=== PATIENT | female | born 1950 | race Two or more races ===

== ENCOUNTER 2023-05-14 09:40 | Outpatient (AMB) | payer OTHER, SELFPAY ==
--- NOTE | 2023-05-14 10:09 | HO.SPINEOV ---
Intake Intake Visit Reasons: spinal stenosis L4-5 Intake Note: Mrs. Miller is here today c/o low back pain. MRI done @ [facility]/brought disc. [employer]er Required: No Assessment & Plan Assessment & Plan (1) Spinal stenosis: Code(s): M48.00 - Spinal stenosis, site unspecified (2) Neurogenic claudication: Code(s): R29.818 - Other symptoms and signs involving the nervous system Plan Robbin is a pleasant 72-year-old female comes in today as a self referral after being referred by one of her friends who had surgery by Dr. Rogers last year. She comes in today with a chief complaint of low back pain with radiation into her posterior lower extremities bilaterally, and down to the outside of her lower leg on the right side. She reports no associated paresthesias but does say that the pain has progressed since onset last year. She states that she has had a myriad of right-sided lower and upper extremity problems over the course of the last couple of years. Most recently she had a right-sided rotator cuff repair in July of last year, and a right total knee repair in August of this year. She states that after these surgeries she began having gradual onset low back pain. She reports that she never had back or leg pain before these surgeries. She states that she has tried many [id number] remedies including Tylenol, ibuprofen, gabapentin, ice, heat, and pain patches without alleviation of symptoms. She has also tried physical therapy, and bilateral cortisone injections (described like facet blocks) at [facility] roughly 6 weeks ago, which he states were not helpful at all. She reports she is now at the point where she is only able to walk for about 5 minutes until she feels she has to sit. She needs to utilize the shopping cart to keep herself mobile when at the grocery store. Her only relieve comes from swimming, and lying down. PMH: Hypertension, right total knee repair, right rotator cuff tear, tonsillectomy, open reduction internal fixation of the right wrist, repair of a bone spur on the right heel. Social hx: Patient does not smoke, reports no substance use. Medications: Tylenol. Allergies: NKDA Physical exam: Mobility / function: Patient ambulates well, can rise from a seated position without difficulty. Sensation: Grossly intact CN: II-XII grossly intact. Strength Testing Upper Extremities: - Deltoid 5/5 right 5/5 left - Biceps 5/5 right 5/5 left - Triceps 5/5 right 5/5 left - Wrist Ext 5/5 right 5/5 left - Wrist Flex 5/5 right 5/5 left - Hand manager logistic 5/5 right 5/5 left - Interossei 5/5 right 5/5 left Strength Testing Lower Extremities: - Hip flexion 5/5 right 5/5 left - Knee extension 5/5 right 5/5 left - Dorsiflexion 5/5 right 5/5 left - Plantar flex 5/5 right 5/5 left - EHL 5/5 right 5/5 left Reflexes: - Biceps Right - 2+ Left - 2+ - Triceps Right - 2+ Left - 2+ - Patellar Right - 2+ Left - 2+ - Achilles Right - 2+ Left - 2+ - Plantar Right - 2+ Left - 2+ (-) Tang?s sign Imaging review: MRI (04/24/23) completed by [facility] (patient brought disc) shows severe L4-5 spinal stenosis. Additionally, L5-S1 fused segment with a spondylolithesis. A dynamic x-ray of the lumbar spine showed no instability. Impression: The patient is a 72-year-old female who comes in today as a self-referral for evaluation of low back pain and neurogenic claudication that started suddenly after her 2 previously listed surgeries. It is likely that she simply did not recognize the back pain and it is insidious onset as she was dealing with other more painful processes, which have since been resolved. Her story is classic for spinal stenosis, she endorses the need to flex her back (shopping cart sign) in order to stay mobile, and reports improvement of symptoms with rest/lying down. She has a very difficult time completing ADLs such as washing dishes taking out the trash in caring for herself. Fortunately she has remained relatively mobile and is able to still exercise via aquatic aerobics. Dr. Rogers and I reviewed the patient case, imaging, and examined the patient together. Due to her continued progression in severe spinal stenosis at the level of L4-L5 he offered her a L4-L5 laminotomy to decompress the central canal. She was scheduled for surgery on June 19. Deborah was given risk and benefits of surgery including but not limited to infection, hematoma, nerve injury, durotomy, weakness, bowel/bladder injury, persistent pain. As well as the option to continue with conservative treatment and patient wishes to proceed with surgery. The patient is aware she should stop their motrin, aspirin 7 days prior to surgery. All questions were answered to the best of our ability. If there is anything about this patients medical history that we have overlooked or concerns you have about us proceeding with surgery we would appreciate any input you can offer. She was encouraged to follow-up with her primary care physician to discuss her surgery, but does report that she has no significant health problems at this time. Thank you for allowing us to care for your patient. The total time spent with this visit with this patient was 60 minutes reviewing history, physical exam, MRI / Lumbar spine imaging review, and implementation of treatment plan or further diagnostic testing. Ashkan Rogers MD,PhD [facility] Orders: Orders XR lumbar spine 4V min Today M48.00 - Spinal stenosis, site unspecified Coding Level of Care Code New Pt Level 5 (50804) Diagnoses Spinal stenosis M48.00 Neurogenic claudication R29.818
== END 2023-05-14 11:17 | disposition home or self-care (01) ==
PROVIDERS: Visit Provider Neurological Surgery
DX: M48.00 Spinal stenosis, site unspecified (principal); R29.818 Other symptoms and signs involving the nervous system
CPT/HCPCS: 99205

== ENCOUNTER 2023-05-14 09:40 | Outpatient (REF) | payer OTHER, SELFPAY ==
--- NOTE | ~2023-05-14 | XR_ITS ---
EXAMINATION: XR LUMBOSACRAL SPINE WITH OBLIQUES CLINICAL INFORMATION: Spinal stenosis. COMPARISON: None available. TECHNIQUE: AP, lateral, and bilateral oblique views of the lumbosacral spine. FINDINGS: Grade 1 anterolisthesis of L5 on S1 measuring approximately 0.6 cm in AP dimension. The lumbar lordosis is maintained. No acute fracture. No loss of vertebral body height. Loss of intervertebral disc height with endplate osteophytes at L4-L5 and L5-S1. Multilevel bilateral facet arthropathy throughout the lower lumbar spine. No concerning lytic or blastic osseous lesion. XR/XR lumbar spine 4V min IMPRESSION: 1. Grade 1 anterolisthesis of L5 on S1. 2. Moderate degenerative disc disease at L4-L5 and L5-S1 with multilevel bilateral facet arthropathy.
== END 2023-05-14 09:41 | disposition home or self-care (01) ==
LOC: HO.HOSX 09:40
PROVIDERS: Visit Provider Neurological Surgery
DX: M48.00 Spinal stenosis, site unspecified (principal)
CPT/HCPCS: 72110

== ENCOUNTER → 2023-07-10 12:18 | Outpatient (BNV) | payer OTHER, SELFPAY | PROVIDERS: Visit Provider Neurological Surgery | DX: Z48.89 Encounter for other specified surgical aftercare (principal) | CPT/HCPCS: 63047; 99024; 99499 ==

== ENCOUNTER 2023-07-10 16:51 | Outpatient (BNV) | payer OTHER, SELFPAY | END 2023-07-11 07:00 | PROVIDERS: Admitting Provider Family Medicine; Visit Provider Internal Medicine | DX: I36.1 Nonrheumatic tricuspid (valve) insufficiency (principal); I34.81 Nonrheumatic mitral (valve) annulus calcification | CPT/HCPCS: 93306 ==

== ENCOUNTER 2023-07-10 16:51 | Inpatient (IN) | payer OTHER, SELFPAY ==
--- NOTE | 2023-06-11 | ECG_ITS ---
Test Reason : preop Blood Pressure : / mmHG Vent. Rate : 075 BPM Atrial Rate : 075 BPM P-R Int : 158 ms QRS Dur : 082 ms QT Int : 390 ms P-R-T Axes : 040 -19 041 degrees QTc Int : 435 ms Normal sinus rhythm Normal ECG No previous ECGs available Referred By: Georgette Moore Electronically Signed By:GABI JUSTIN MD
[2023-06-11 12:00] VITALS: BP 204/110; PULSE 77; RESP 16; O2SAT 96; BMI 42.1
--- NOTE | 2023-06-11 12:35 | P.CONAN_ITS ---
HPI - Anesthesia Eval Consult details Narrative: Pending reschedule 72yo F for L4-5 Laminotomy BP extremely elevated at PAT. Pt denies any headache, vision changes, chest pain. Encourage to go to ER. Pt declines. Discussed need for optimization of BP prior to surgery Per medical clearance note from [facility], BP elevated at visit, but home readings acceptable. Pt recently started losartan. Instructed by [facility] provider to take losartanc and HCTZ DOS to avoid uncontrolled HTN. No recent illness No CP/SOB with minimal activity. Limited to pain in back and legs Hx of seizures. Last ~ 25 years ago. No rx. No neuro f/u. [facility] Active Problems Active Problems: All Active Problems (Updated 06/11/23 @ 11:45 by Kelsey Li RN) Neurogenic claudication (Acute) Spinal stenosis (Acute) Past Medical History Medical History (Updated 06/11/23 @ 11:45 by Kelsey Li RN) Back pain Arthritis Seizures HTN (hypertension) Family History Family history of problems with anesthesia: No Surgical History Surgical History (Updated 06/11/23 @ 11:58 by Kelsey Li RN) Hx of section Hx of foot surgery Hx of bilateral salpingo-oophorectomy Hx of total hysterectomy History of open reduction and internal fixation (ORIF) procedure Hx of tonsillectomy Hx of repair of rotator cuff Hx of total knee replacement History of Problems with Anesthesia: No Social History Social History Are you a primary infant caregiver to a significant other at home: No Do you presently have visiting nurse or other home services: No Patient Tobacco Use Status: Never used Tobacco Use of substances other than those prescribed or required for medical reasons: No Have you been hit, kicked, punched, or otherwise hurt by someone within the past year? If so, by whom?: No Advance Directives: No Advance Directives Information Provided: No Advance Directives on File: No Recently lost weight without trying: No Eating poorly because of decreased appetite: No Nutrition Risks: No Nutritional Risk Patient : No : No Poor oral hygiene: No Meds Allergies Allergy/AdvReac Type Severity Reaction Status Date / Time acetaminophen [From Tylenol] Allergy Swelling Verified 06/11/23 11:40 baclofen Allergy Unknown Verified 06/11/23 11:55 Iodinated Contrast Media Allergy Rash Verified 06/11/23 11:40 [IV Contrast Dye] lisinopril Allergy Cough Verified 06/11/23 11:54 Home Medications Medication Instructions Recorded Confirmed Last Taken Type cholecalciferol (vitamin D3) 25 25 mcg PO DAILY 06/11/23 06/11/23 Unknown History mcg (1,000 unit) tablet (Vitamin D3) hydrochlorothiazide 12.5 mg capsule 12.5 mg PO DAILY 06/11/23 06/11/23 Unknown History magnesium oxide 400 mg PO DAILY 06/11/23 06/11/23 Unknown History methocarbamol 750 mg tablet 750 mg PO Q6H PRN Spasms 06/11/23 06/11/23 Unknown History naproxen 500 mg tablet 500 mg PO BID 06/11/23 06/11/23 Unknown History potassium chloride 10 mEq 30 meq PO DAILY 06/11/23 06/11/23 Unknown History tablet,extended release(part/cryst) (Klor-Con M) Exam Exam Date and Time: June 11, 2023 1235 Height,Weight and Vital Signs: Height 5 ft 6 in Weight 118.388 kg Last Vital Signs Pulse 77 06/11/23 12:00 Resp 16 06/11/23 12:00 BP 204/110 H 06/11/23 12:00 Pulse Ox 96 06/11/23 12:00 O2 Del Method Room Air 06/11/23 12:00 Pertinent Lab Results Pertinent Lab Results: Lab Results 06/11/23 Range/Units 13:10 WBC 5.7 (4.8-10.8) X10*3/uL RBC 4.68 (4.20-5.50) X10*6/uL Hgb 13.4 (12.0-16.0) g/dl Hct 41.4 (37.0-47.0) % MCV 88.5 (80.0-98.0) fL MCH 28.6 (27.0-33.0) pg MCHC 32.4 (31.0-35.0) g/dl RDW 13.9 (11.0-16.0) % Plt Count 306 (160-400) X10*3/uL MPV 10.3 (9.4-12.3) fL Absolute Nucleated RBC 0.000 (0.0-0.012) X10*3/uL Nucleated RBC % (auto) 0.0 (0.0-0.2) /100WBC Sodium 141 (135-145) mmol/L Potassium 3.2 L (3.3-5.1) mmol/L Chloride 103 (96-108) mmol/L Carbon Dioxide 26 (22-29) mmol/L Anion Gap 15 (12-20) BUN 11 (9-16) mg/dL Creatinine 0.59 (0.5-1.4) mg/dL Estim Creat Clear Calc 111.2 Estimated GFR > 60 Random Glucose 93 (60-115) mg/dL Calcium 9.5 (8.4-10.2) mg/dL Narrative Narrative: EKG 05/2023 Vent. Rate : 075 BPM Atrial Rate : 075 BPM P-R Int : 158 ms QRS Dur : 082 ms QT Int : 390 ms P-R-T Axes : 040 -19 041 degrees QTc Int : 435 ms Normal sinus rhythm Normal ECG No previous ECGs available Airway Mallampati Class: II TM Dist: >3cm Neck ROM: Full Loose/Missing/Broken Teeth: No Heart: RRR Lungs: CTA except dim LLL Assessment and Plan Assessment Anesthesia Assessment: Anesthesia Plan Discussed and PAT Visit Final Anesthetic Review Family History of Problems with Anesthesia: No History of Problems with Anesthesia: No
[2023-06-11 13:58] LABS: Hematocrit 41.4 % (37.0-47.0); Hemoglobin 13.4 g/dl (12.0-16.0); Mean Corpuscular HGB Conc 32.4 g/dl (31.0-35.0); Mean Corpuscular Hemoglobin 28.6 pg (27.0-33.0); Mean Corpuscular Volume 88.5 fL (80.0-98.0); Mean Platelet Volume 10.3 fL (9.4-12.3); Platelet Count 306 X10*3/uL (160-400); Red Blood Count 4.68 X10*6/uL (4.20-5.50); Red Cell Distribution Width 13.9 % (11.0-16.0); White Blood Count 5.7 X10*3/uL (4.8-10.8)
[2023-06-11 15:08] LABS: Anion Gap 15 (12-20); Blood Urea Nitrogen 11 mg/dL (9-16); Calcium 9.5 mg/dL (8.4-10.2); Carbon Dioxide 26 mmol/L (22-29); Chloride 103 mmol/L (96-108); Creatinine Clr Calc Pharmacy 111.2; Estimated Glomerular Filt Rate > 60; Glucose Random 93 mg/dL (60-115); Potassium 3.2 mmol/L (3.3-5.1); Sodium 141 mmol/L (135-145)
--- NOTE | 2023-07-09 12:55 | P.CONAN_ITS ---
Documented by User: Georgette Moore NP 07/09/23 12:56 HPI - Anesthesia Eval Consult details Narrative: 72yo F for L4-5 Laminotomy BP extremely elevated at PAT. Pt denies any headache, vision changes, chest pain. Encourage to go to ER. Pt declines. Discussed need for optimization of BP prior to surgery Per medical clearance note from [facility], BP elevated at visit, but home readings acceptable. Pt recently started losartan. Instructed by [facility] provider to take losartanc and HCTZ DOS to avoid uncontrolled HTN. No recent illness No CP/SOB with minimal activity. Limited to pain in back and legs Hx of seizures. Last ~ 25 years ago. No rx. No neuro f/u. [facility] Active Problems Active Problems: All Active Problems (Updated 06/11/23 @ 11:45 by Kelsey Li RN) Neurogenic claudication (Acute) Spinal stenosis (Acute) Past Medical History Medical History Back pain Arthritis Seizures HTN (hypertension) Family History Family history of problems with anesthesia: No Surgical History Surgical History Hx of section Hx of foot surgery Hx of bilateral salpingo-oophorectomy Hx of total hysterectomy History of open reduction and internal fixation (ORIF) procedure Hx of tonsillectomy Hx of repair of rotator cuff Hx of total knee replacement History of Problems with Anesthesia: No Social History Social History Are you a primary out of school hours care worker to a significant other at home: No Do you presently have visiting nurse or other home services: No Patient Tobacco Use Status: Never used Tobacco Use of substances other than those prescribed or required for medical reasons: No Have you been hit, kicked, punched, or otherwise hurt by someone within the past year? If so, by whom?: No Are you DNR?: No Advance Directives: No Advance Directives Information Provided: Yes Advance Directives on File: No Recently lost weight without trying: No Eating poorly because of decreased appetite: No Nutrition Risks: No Nutritional Risk Patient : No : No Poor oral hygiene: No Meds Allergies Allergy/AdvReac Type Severity Reaction Status Date / Time acetaminophen [From Tylenol] Allergy Swelling Verified 06/11/23 11:40 baclofen Allergy Unknown Verified 06/11/23 11:55 Iodinated Contrast Media Allergy Rash Verified 06/11/23 11:40 [IV Contrast Dye] lisinopril Allergy Cough Verified 06/11/23 11:54 Home Medications Medication Instructions Recorded Confirmed Last Taken Type cholecalciferol (vitamin D3) 25 25 mcg PO DAILY 06/11/23 06/11/23 Unknown History mcg (1,000 unit) tablet (Vitamin D3) hydrochlorothiazide 12.5 mg capsule 12.5 mg PO DAILY 06/11/23 06/11/23 07/10/23 10:00 History magnesium oxide 400 mg PO DAILY 06/11/23 06/11/23 Unknown History methocarbamol 750 mg tablet 750 mg PO Q6H PRN Spasms 06/11/23 06/11/23 Unknown History naproxen 500 mg tablet 500 mg PO BID 06/11/23 06/11/23 06/25/23 History potassium chloride 10 mEq 30 meq PO DAILY 06/11/23 06/11/23 Unknown History tablet,extended release(part/cryst) (Klor-Con M) losartan 25 mg tablet 50 mg PO DAILY 07/10/23 07/10/23 07/10/23 10:00 History Exam Exam Date and Time: July 09, 2023 1255 Height,Weight and Vital Signs: Height 5 ft 6 in Weight 118.388 kg Last Vital Signs Pulse 77 06/11/23 12:00 Resp 16 06/11/23 12:00 BP 204/110 H 06/11/23 12:00 Pulse Ox 96 06/11/23 12:00 O2 Del Method Room Air 06/11/23 12:00 Pertinent Lab Results Pertinent Lab Results: Laboratory Tests 06/11/23 13:10 WBC 5.7 RBC 4.68 Hgb 13.4 Hct 41.4 MCV 88.5 MCH 28.6 MCHC 32.4 RDW 13.9 Plt Count 306 MPV 10.3 Absolute Nucleated RBC 0.000 Nucleated RBC % (auto) 0.0 Sodium 141 Potassium 3.2 L Chloride 103 Carbon Dioxide 26 Anion Gap 15 BUN 11 Creatinine 0.59 Estim Creat Clear Calc 111.2 Estimated GFR > 60 Random Glucose 93 Calcium 9.5 Narrative Narrative: EKG 05/2023 Vent. Rate : 075 BPM Atrial Rate : 075 BPM P-R Int : 158 ms QRS Dur : 082 ms QT Int : 390 ms P-R-T Axes : 040 -19 041 degrees QTc Int : 435 ms Normal sinus rhythm Normal ECG No previous ECGs available Airway Mallampati Class: II TM Dist: >3cm Neck ROM: Full Loose/Missing/Broken Teeth: No Heart: RRR Lungs: CTA except dim LLL Assessment and Plan Assessment Anesthesia Assessment: Anesthesia Plan Discussed and PAT Visit (Seen in PAT 06/11/23) Final Anesthetic Review Family History of Problems with Anesthesia: No History of Problems with Anesthesia: No Documented by User: Hung Moraes MD 07/10/23 12:54 [facility] Past Medical History Medical History Back pain Arthritis Seizures HTN (hypertension) Surgical History Surgical History Hx of section Hx of foot surgery Hx of bilateral salpingo-oophorectomy Hx of total hysterectomy History of open reduction and internal fixation (ORIF) procedure Hx of tonsillectomy Hx of repair of rotator cuff Hx of total knee replacement Social History Social History Are you a primary out of school hours care worker to a significant other at home: No Do you presently have visiting nurse or other home services: No Patient Tobacco Use Status: Never used Tobacco Use of substances other than those prescribed or required for medical reasons: No Have you been hit, kicked, punched, or otherwise hurt by someone within the past year? If so, by whom?: No Are you DNR?: No Advance Directives: No Advance Directives Information Provided: Yes Advance Directives on File: No Recently lost weight without trying: No Eating poorly because of decreased appetite: No Nutrition Risks: No Nutritional Risk Patient : No : No Poor oral hygiene: No Meds Allergies Allergy/AdvReac Type Severity Reaction Status Date / Time acetaminophen [From Tylenol] Allergy Swelling Verified 06/11/23 11:40 baclofen Allergy Unknown Verified 06/11/23 11:55 Iodinated Contrast Media Allergy Rash Verified 06/11/23 11:40 [IV Contrast Dye] lisinopril Allergy Cough Verified 06/11/23 11:54 Home Medications Medication Instructions Recorded Confirmed Last Taken Type cholecalciferol (vitamin D3) 25 25 mcg PO DAILY 06/11/23 06/11/23 Unknown History mcg (1,000 unit) tablet (Vitamin D3) hydrochlorothiazide 12.5 mg capsule 12.5 mg PO DAILY 06/11/23 06/11/23 07/10/23 10:00 History magnesium oxide 400 mg PO DAILY 06/11/23 06/11/23 Unknown History methocarbamol 750 mg tablet 750 mg PO Q6H PRN Spasms 06/11/23 06/11/23 Unknown History naproxen 500 mg tablet 500 mg PO BID 06/11/23 06/11/23 06/25/23 History potassium chloride 10 mEq 30 meq PO DAILY 06/11/23 06/11/23 Unknown History tablet,extended release(part/cryst) (Klor-Con M) losartan 25 mg tablet 50 mg PO DAILY 07/10/23 07/10/23 07/10/23 10:00 History Assessment and Plan Assessment Anesthesia Assessment: Chart Reviewed Final Anesthetic Review NPO: Yes ASA Class: III Final Preanesthetic Review: No Changes in Pt Med Stat, Meds/Allgs Chart Reviewed, Consent Obtained/Reviewed and Anes Risks/Benef Reviewed Patient Risk: Intermediate Procedure Risk: Intermediate Anesthetic Plan Anesthetic Plan: GA and Agree w/ Assess. and Plan Disposition: Standard PACU Documented by User: Mackenzie Louis MD 07/10/23 12:55 [facility] Past Medical History Medical History Back pain Arthritis Seizures HTN (hypertension) Surgical History Surgical History Hx of section Hx of foot surgery Hx of bilateral salpingo-oophorectomy Hx of total hysterectomy History of open reduction and internal fixation (ORIF) procedure Hx of tonsillectomy Hx of repair of rotator cuff Hx of total knee replacement Social History Social History Are you a primary out of school hours care worker to a significant other at home: No Do you presently have visiting nurse or other home services: No Patient Tobacco Use Status: Never used Tobacco Use of substances other than those prescribed or required for medical reasons: No Have you been hit, kicked, punched, or otherwise hurt by someone within the past year? If so, by whom?: No Are you DNR?: No Advance Directives: No Advance Directives Information Provided: Yes Advance Directives on File: No Recently lost weight without trying: No Eating poorly because of decreased appetite: No Nutrition Risks: No Nutritional Risk Patient : No : No Poor oral hygiene: No Meds Allergies Allergy/AdvReac Type Severity Reaction Status Date / Time acetaminophen [From Tylenol] Allergy Swelling Verified 06/11/23 11:40 baclofen Allergy Unknown Verified 06/11/23 11:55 Iodinated Contrast Media Allergy Rash Verified 06/11/23 11:40 [IV Contrast Dye] lisinopril Allergy Cough Verified 06/11/23 11:54 Home Medications Medication Instructions Recorded Confirmed Last Taken Type cholecalciferol (vitamin D3) 25 25 mcg PO DAILY 06/11/23 06/11/23 Unknown History mcg (1,000 unit) tablet (Vitamin D3) hydrochlorothiazide 12.5 mg capsule 12.5 mg PO DAILY 06/11/23 06/11/23 07/10/23 10:00 History magnesium oxide 400 mg PO DAILY 06/11/23 06/11/23 Unknown History methocarbamol 750 mg tablet 750 mg PO Q6H PRN Spasms 06/11/23 06/11/23 Unknown History naproxen 500 mg tablet 500 mg PO BID 06/11/23 06/11/23 06/25/23 History potassium chloride 10 mEq 30 meq PO DAILY 06/11/23 06/11/23 Unknown History tablet,extended release(part/cryst) (Klor-Con M) losartan 25 mg tablet 50 mg PO DAILY 07/10/23 07/10/23 07/10/23 10:00 History Assessment and Plan Final Anesthetic Review ASA Class: III
[2023-07-10] VITALS (20 sets, daily range): BP systolic 99–197; BP diastolic 55–100; PULSE 70–130; RESP 16–26; TEMP 36.1–36.7; O2SAT 94–100
--- NOTE | 2023-07-10 | ECG_ITS ---
Test Reason : AF Blood Pressure : / mmHG Vent. Rate : 058 BPM Atrial Rate : 058 BPM P-R Int : 158 ms QRS Dur : 082 ms QT Int : 432 ms P-R-T Axes : 021 005 033 degrees QTc Int : 424 ms Sinus bradycardia Otherwise normal ECG When compared with ECG of 10-JUL-2023 16:42, Sinus rhythm has replaced Atrial fibrillation Vent. rate has decreased BY 58 BPM Non-specific change in ST segment in Inferior leads Nonspecific T wave abnormality no longer evident in Lateral leads Referred By: Joel Richard Electronically Signed By:GABI JUSTIN MD
--- NOTE | ~2023-07-10 | XR_ITS ---
EXAMINATION: XR CHEST CLINICAL INFORMATION: Prominent mediastinum and lee on portable chest x-ray. COMPARISON: 07/10/2023 TECHNIQUE: 2 views of the chest were obtained. FINDINGS: The lungs are moderately expanded. The left hemidiaphragm is elevated. Right paratracheal soft tissue prominence and widening of the mediastinum. Rightward deviation of the trachea possibly related to dilatation of the thoracic aorta. No focal consolidation. No pleural effusion. Cardiac silhouette is unchanged. XR/XR chest 2V IMPRESSION: Right paratracheal soft tissue prominence and widening of the mediastinum. Rightward deviation of the trachea possibly related to dilatation of the thoracic aorta. Advise correlation with contrast-enhanced chest CT.
--- NOTE | ~2023-07-10 | FL_ITS ---
EXAMINATION: XR FLUOROSCOPY WITH IMAGES CLINICAL INFORMATION: L4-L5 laminectomy. COMPARISON: Lumbar spine x-ray April 2023 TECHNIQUE: Fluoroscopy Supervised By: Dr. Elliot Rogers. Fluoroscopy Time: 0.2 minutes. Cumulative Dose: 18.2 mGy. DAP: 0.264 Gycm2. Images: 2. FINDINGS: Initial image demonstrates surgical instruments posterior to the L3-L4 disc space level. Final image demonstrates surgical instruments and probe posterior to the L4-5 disc space. FL/FL guidance in OR IMPRESSION: Fluoroscopy guidance for lumbar spine surgery
--- NOTE | ~2023-07-10 | XR_ITS ---
EXAMINATION: XR CHEST CLINICAL INFORMATION: AF COMPARISON: None available. TECHNIQUE: Frontal view of the chest was obtained. FINDINGS: Heart size within normal limits. Mediastinum and lee are prominent, right greater than left. Elevated left hemidiaphragm with dilated air-filled viscus structure. No vascular congestion, consolidations or effusions. Degenerative changes. XR/XR chest 1V IMPRESSION: Elevated left hemidiaphragm. No acute cardiopulmonary disease. Prominent mediastinum and lee. Correlate with previous radiographs. PA and lateral recommended when feasible.
--- NOTE | 2023-07-10 07:05 | MHC.SHP ---
Pre-Procedural Eval Section A Date of Service: 07/10/23 Section B Chief Complaint: Spinal stenosis,signs and symptoms of nervous syst Allergies: Allergies Allergy/AdvReac Type Severity Reaction Status Date / Time acetaminophen [From Tylenol] Allergy Swelling Verified 06/11/23 11:40 baclofen Allergy Unknown Verified 06/11/23 11:55 Iodinated Contrast Media Allergy Rash Verified 06/11/23 11:40 [IV Contrast Dye] lisinopril Allergy Cough Verified 06/11/23 11:54 Review of Systems Sugical H&P ROS: Negative: Constitution, Cardiovascular, Respiratory, Neurological, Psychiatric, Hem-Onc, Allergic/Immunologic, Gastrointestinal, Genitourinary, Musculoskeletal, Integumentary, Endocrine and Eyes/Ears/Nose/Throat Exam Surgical H&P Exam: Not Evaluated: HEENT, Not Evaluated: Heart, Not Evaluated: Lungs, Not Evaluated: Extremities, Not Evaluated: Abdomen, Not Evaluated: Skin and Not Evaluated: Neurological Plan Diagnosis/Plan: Unchanged I have reviewed the history and physical and performed a pertinent physical examination on my patient. No changes have occurred unless specified. Plan remains the same, L4-5 lumbar decompression Time Spent With Patient Time: Total time managing care of this patient today __10__ minutes.
[2023-07-10] MEDS: methocarbamoL 750 MG TABLET PO (12:53)
[2023-07-10] MEDS: Lactated Ringers 1,000 ML 100 ML IVCONT (12:53)
[2023-07-10] MEDS: Gabapentin 300 MG CAPSULE PO ×2 (12:53→20:02)
--- NOTE | 2023-07-10 16:22 | P.DS_ITS ---
DS: Providers Provider Date of Service: 07/11/23 Primary care physician: Nonstaff Physician DS: Summary Time Attestation Discharge coordination time: Less than 30 minutes Quality: Safe Use of Opioids Does Pt have an Active Cancer Diagnosis on the Problem List?: No Quality: Stroke Does the patient have a stroke diagnosis?: No Physical Exam Vital Signs: Vital Signs: Last Vital Signs Temp 97.9 F 07/10/23 12:56 Pulse 70 07/10/23 12:56 Resp 20 07/10/23 12:56 BP 167/86 H 07/10/23 12:56 Pulse Ox 97 07/10/23 12:56 O2 Del Method Room Air 07/10/23 12:43 BMI result Body Mass Index 42.1 Discharge Plan Discharge Anticipated Discharge Date/Time: 07/11/23 09:51 Patient Disposition: Home, Self-Care Discharge Diagnosis: S/P L4-5 Laminotomy Referrals: Physician,Nonstaff [Primary Care Provider] - 1 Week Discharge Medications: New oxycodone 5 mg tablet 5 mg PO Q6H PRN (Reason: severe pain (scale score 7-10)) Qty: 30 0RF Rx Instructions: Partial Fill upon patient request. Continued hydrochlorothiazide 12.5 mg capsule 12.5 mg PO DAILY cholecalciferol (vitamin D3) [Vitamin D3] 25 mcg (1,000 unit) tablet 25 mcg PO DAILY magnesium oxide 400 mg magnesium Capsule 400 mg PO DAILY losartan 25 mg tablet 50 mg PO DAILY naproxen 375 mg tablet 375 mg PO DAILY PRN (Reason: Pain) ibuprofen 600 mg tablet 600 mg PO Q6H PRN (Reason: pain) fluticasone propionate 110 mcg/actuation HFA aerosol inhaler 1 inh inhalation BID Held potassium chloride [Klor-Con M10] 10 mEq tablet,ER particles/crystals 30 meq PO DAILY Hold Instructions: Resume on 08/10/23. Do not continue unless instructed by prescribing physician prednisone 20 mg tablet 20 mg PO DAILY Hold Instructions: Resume on 08/10/23. Do not continue unless instructed by prescribing physician Diet: Advance to usual diet Activity on Discharge: As tolerated Activity Restrictions/Additional Instructions: After your spinal surgery we ask you to observe the following restrictions/guidelines: Activity: It is normal to feel some discomfort as you increase your activity, but that will improve with time. We ask you avoid heavy lifting or acitivities that cause pain. As a general rule, 8lbs is a safe limit for lifting right after surgery. Walk as much as you feel comfortable but not to exhaustion. You will feel extra tired the first few days after surgery. Stay well hydrated. It is OK to walk up and down stairs You may return to driving when you are off narcotics (such as vicodin, oxycodone, dilaudid, etc), and you are back to normal functional capacity. If you have any concerns please check with office before driving. Return to work is specific to each patient and each surgery, so please speak with your doctor/PA at first follow up. Please bring paperwork such as FMLA at that time if you need it filled out. Medications: We will give you a short supply of narcotics after surgery (usually one weeks worth). If you need more please call the office but do not use more than prescribed. You will need to give our office 48 hours notice if you need narcotics refilled and we do not fill narcotics on weekends or evenings. If you are on a narcotic, it is a good idea to take a stool softener such as colace or senna to avoid constipation If you take blood thinner such as aspirin, Plavix, Coumadin, Effient, Eliquis etc for conditions such as Afib, DVT, Pulmonary embolus, coronary disease, stents etc please speak with your surgeon about specific details as to when you can resume these medications. You can resume NSAIDs on post op day 1 (eg: Motrin, Naproxen, etc). Follow up: Please call the office, , after surgery to arrange a 3 week follow up for wound check. Wound Care: You may remove your dressing on the first day after surgery. You may leave open to air. Please do not remove the steri strips underneath. they will fall off on their own in one week. IT IS NORMAL FOR THE WOUND TO OOZE OR BE BLOODY FOR A FEW DAYS AFTER SURGERY. IF THIS HAPPENS JUST PLACE NEW DRESSING OVER IT TO AVOID STAINING CLOTHES. You may shower on post op day # 1 We ask that you do not let the water soak the wound. If it does get wet, just towel dry lightly. Please do not scrub your incision or place any type of chemical/ointment on the wound. No tub baths, pools or jacuzzis for one month. If you have any leaking or redness from your wound, or fevers, please call the office. __ Care Plan Goals: Return to normal activity as tolerated. Follow-up with any/all referrals recommended by Internal Medicine. Follow-up with primary care provider for postoperative evaluation Health Concerns: None. Plan of Treatment: Follow-up in office in 2-3 weeks Assessment: Patient is s/p uneventful L4-5 laminotomy. She developed AFib postoperatively and was admitted by Internal Medicine. They are undergoing electrolyte replacement of ordered an echocardiogram. From our surgical standpoint she is Neurologically intact, her vital signs are stable, and she has good strength. We encouraged her to get up frequently and ambulate with nursing staff. She understands that she should follow-up with our office in 2-3 weeks after she is discharged from the hospital by our Internal Medicine team. Dr. Rogers, the attending Neurosurgeon, is in agreement with this plan.
--- NOTE | 2023-07-10 16:24 | W.PM.OPN ---
Operative Note Operative Note Date of Service: 07/10/23 Narrative: Preoperative Diagnosis: L4-5 spinal stenosis/lateral recess stenosis/neural foraminal stenosis Operation: L4-5 Laminotomy, Partial facetectomy and foraminotomy with use of microscope Consent Informed Consent was obtained for this operation. I have explained the nature, purpose and benefits of the operation. I have discussed the risks and benefit of the operation including possible complications or adverse events with patient/family. Alternative(s) were discussed with the patient with their relative benefits and risks as well as the consequences of not accepting the operation were included in obtaining consent. Surgeon: GENNA BARKER MD, PHD Procedure Assisted By: PAULINA Bernard Description of Procedure This 72-year-old obese female suffering from neurogenic claudication due to L4-5 spinal stenosis. The patient was offered a decompression. The procedure complications were explained. The patient was consented. The patient was brought to the operating room and endotracheally intubated. The patient was turned in prone position on the Speedy frame. Prep and drape was done followed by timeout. A mid lumbar incision was made followed by release of the paravertebral muscle bilaterally to expose the L3-L5 lamina and facet joints. Multiple intraoperative x-ray was obtained to confirm the correct level. I decided to first do a proximal bilateral L4 laminotomy as L4 nerve roots were compressed due to lateral recess stenosis. The microscope was brought in. The proximal part of the L4 lamina was drilled down and the underlying flavum ligament was opened and resected. Significant stenosis was present for the bilateral L4 nerve roots. Accordingly, the interspinous ligament between L4-5 was removed and L4 laminotomy was extended towards the L4-5 interspace. Again significant hypertrophy flavum ligament was encountered. The ligament was opened and resected to expose the underlying dura. A #2 Kerrison was used to expand the laminotomy near flush to the pedicles and to include a partial facetectomy. The flavum ligament was furtherremoved to decompress the lateral recess and the exiting L5 nerve roots bilaterally. A long nerve hook could be easily passed along the medial side of the pedicles as a sign of adequate decompression. The microscope was removed. Hemostasis was done. The physician health care legal assistant close the Incision in 3 layers. Steri-Strips were used to approximate incision. An OpSite with Tegaderm was used to cover the incision. All sponge needle counts were correct. Patient was extubated and transported in stable is to recovery room. Anesthesia: General Estimated Blood Loss (ml): 350 mL Complications: None Duration of Surgery: Under 120 Minutes Postoperative Plan: 23 hour stay
--- NOTE | 2023-07-10 16:33 | HO.NEUROPN_ITS ---
Neurosurgery Operative Note Date of Service: 07/11/23 Narrative: POD: 0 Procedure: L4-5 laminotomy S/p procedure and after awakening from anesthesia the patient developed AFib, which anesthesia MD attempted to treat with metoprolol. The patient will be admitted to telemetry unit for further evaluation and monitoring of her AFib. Importantly she is asymptomatic at this time. Afebrile, vital signs stable aside from rhythm mentioned above. No neurological deficits. Back dressings have some staining without signs of hematoma. Area is dry. Plan: The patient will be transferred as stated above. I will send the patient out to hospitalist team tonight, and be in tomorrow morning to evaluate and hopefully discharge the patient. Dr. Rogers is aware of and agrees to this plan. Ashkan Rogers MD,PhD [facility]
[2023-07-10] MEDS: fentaNYL citrate/PF 100 MCG/2 ML VIAL 25 MCG IVPUSH ×2 (16:59→17:05)
--- NOTE | 2023-07-10 17:00 | P.HPHOSP_ITS ---
History of Present Illness Date of Service: 07/10/23 Chief Complaint: new-onset AF/RVR 72yo F who underwent L4-L5 laminectomy/partial facetectomy/foraminotomy today for L4-L5 spinal stenosis and in the PACU, went into AF/RVR with rate in the 130s. She was given 3 mg of IV metoprolol and she is still in AF/RVR with rate in the 110s. BP currently 154/85. No palpitations, dyspnea, or lightheadedness. No chest pain. No prior hx of AF. No hx of coronary disease, CVA, or CHF. She has longstanding HTN and is on HCTZ and losartan. Also remote history of seizures in 1996 but not on any AEDs. Review of Systems 2 Review of Systems: Yes all other systems are reviewed and are negative [facility] Medical History Back pain Arthritis Seizures HTN (hypertension) Surgical History Hx of section Hx of foot surgery Hx of bilateral salpingo-oophorectomy Hx of total hysterectomy History of open reduction and internal fixation (ORIF) procedure Hx of tonsillectomy Hx of repair of rotator cuff Hx of total knee replacement Social History Are you a primary patient centered care specialist to a significant other at home: No Do you presently have visiting nurse or other home services: No Patient Tobacco Use Status: Never used Tobacco Use of substances other than those prescribed or required for medical reasons: No Have you been hit, kicked, punched, or otherwise hurt by someone within the past year? If so, by whom?: No Are you DNR?: No Advance Directives: No Advance Directives Information Provided: Yes Advance Directives on File: No Recently lost weight without trying: No Eating poorly because of decreased appetite: No Nutrition Risks: No Nutritional Risk Patient : No : No Poor oral hygiene: No Meds Allergies Allergy/AdvReac Type Severity Reaction Status Date / Time acetaminophen [From Tylenol] Allergy Swelling Verified 06/11/23 11:40 baclofen Allergy Unknown Verified 06/11/23 11:55 Iodinated Contrast Media Allergy Rash Verified 06/11/23 11:40 [IV Contrast Dye] lisinopril Allergy Cough Verified 06/11/23 11:54 Active Medications: Current Medications Fentanyl (Fentanyl Citrate/Pf 100 Mcg/2 Ml Vial) 25 mcg IVPUSH Q5M PRN; Protocol PRN Reason: Pain, Moderate(Pain Scale 4-6) Last Admin: 07/10/23 16:59 Dose: 25 mcg Lactated Ringer's (Lr) 1,000 mls @ 100 mls/hr IVCONT .Q10H SARAVANAN Last Admin: 07/10/23 12:53 Dose: 100 mls/hr Metoprolol Tartrate (Metoprolol Tartrate 5 Mg/5 Ml Vial) 2.5 mg IVPUSH ONCE ONE Stop: 07/10/23 17:01 Ondansetron HCl (Ondansetron Hcl 4 Mg/2 Ml Vial) 4 mg IVPUSH ONCE PRN PRN Reason: Nausea and Vomiting Oxycodone HCl (Oxycodone Hcl Immed Release 5 Mg Tablet) 5 mg PO ONCE PRN PRN Reason: Pain, Severe (Pain Scale 7-10) Sodium Chloride (0.9 % Sodium Chloride Flush 3 Ml Syringe) 3 ml IVFLUSH [facility] Home Medications Medication Instructions Recorded Confirmed Last Taken Type cholecalciferol (vitamin D3) 25 25 mcg PO DAILY 06/11/23 06/11/23 Unknown History mcg (1,000 unit) tablet (Vitamin D3) hydrochlorothiazide 12.5 mg capsule 12.5 mg PO DAILY 06/11/23 06/11/23 07/10/23 10:00 History magnesium oxide 400 mg PO DAILY 06/11/23 06/11/23 Unknown History methocarbamol 750 mg tablet 750 mg PO Q6H PRN Spasms 06/11/23 06/11/23 Unknown History naproxen 500 mg tablet 500 mg PO BID 06/11/23 06/11/23 06/25/23 History potassium chloride 10 mEq 30 meq PO DAILY 06/11/23 06/11/23 Unknown History tablet,extended release(part/cryst) (Klor-Con M) losartan 25 mg tablet 50 mg PO DAILY 07/10/23 07/10/23 07/10/23 10:00 History Physical Exam 2 Vital Signs and Narrative: Vital Signs: Last Vital Signs Temp 97.8 F 07/10/23 16:32 Pulse 118 H 07/10/23 16:47 Resp 20 07/10/23 16:59 BP 154/85 H 07/10/23 16:47 Pulse Ox 100 07/10/23 16:47 O2 Del Method Simple Mask 07/10/23 16:47 O2 Flow Rate 6 07/10/23 16:47 BMI result Body Mass Index 42.1 Gen: in no acute distress HEENT: sclera anicteric, moist mucus membranes Neck: supple Lungs: clear to auscultation bilaterally Heart: irregular, rapid, no murmurs Abd: soft, non-tender, non-distended, morbidly obese Ext: no edema Skin: warm/well-perfused Neuro: alert and oriented x3, no focal findings Psych: appropriate affect Results Labs 06/11/23 13:10 06/11/23 13:10 Assessment and Plan (1) Atrial fibrillation: Status: Acute Plan 72yo F with HTN + obesity who was in PACU after uncomplicated minimally invasive L4-L5 laminectomy and developed new-onset AF/RVR. AF/RVR - [place] [facility] [place] Will give additional dose of metoprolol 5 mg IV. If persistent, may require diltiazem infusion but as anesthesia wears off, may convert to NSR on own. Consult Cardiology re rhythm control strategy. [id number]- VASc 1, no absolute indication for full AC. Will check lytes including K/Mg along with TSH. TTE in AM. HTN - On losartan + HCTZ Postop L4-L5 laminectomy - Routine postop care Morbid obesity - diet/exercise counseling VTE ppx - SCDs Dispo - TBD I anticipate that the patient will stay at least 2 midnights as an inpatient in the hospital due to the above reasons. It is neither reasonable nor safe to care for them in a less acute setting. Quality Stroke Does the patient have a stroke diagnosis?: No VTE Prior VTE?: No VTE Risk Level:: Surgical - low VTE Device Contraindication: N/A - Device Ordered VTE Drug Contraindication: Treatment Not Tolerated
[2023-07-10] MEDS: Metoprolol Tartrate 5 MG/5 ML VIAL IVPUSH (17:18)
[2023-07-10] MEDS: oxyCODONE HCl Immed Release 5 MG TABLET PO (18:00)
[2023-07-10 19:21] LABS: Hematocrit 37.5 % (37.0-47.0); Hemoglobin 12.5 g/dl (12.0-16.0); Mean Corpuscular HGB Conc 33.3 g/dl (31.0-35.0); Mean Corpuscular Hemoglobin 29.4 pg (27.0-33.0); Mean Corpuscular Volume 88.2 fL (80.0-98.0); Mean Platelet Volume 11.6 fL (9.4-12.3); Platelet Count 188 X10*3/uL (160-400); Red Blood Count 4.25 X10*6/uL (4.20-5.50); White Blood Count 10.9 X10*3/uL (4.8-10.8)
[2023-07-10] MEDS: Ketorolac Tromethamine 15 MG/ML VIAL IVPUSH (19:59)
[2023-07-10] MEDS: Docusate Sodium 100 MG CAPSULE PO (20:02)
[2023-07-10] MEDS: 0.9 % Sodium Chloride 1,000 ML 75 ML IVCONT (20:06)
[2023-07-10] MEDS: ceFAZolin Sodium/Dextrose,Iso 2 GM/50 ML PIGGYBACK IV (20:06)
[2023-07-10 20:24] LABS: TSH reflex Free T4 1.98 uIU/mL (0.32-4.0)
[2023-07-10 21:10] LABS: Anion Gap 16 (12-20); Blood Urea Nitrogen 11 mg/dL (9-16); Calcium 8.6 mg/dL (8.4-10.2); Carbon Dioxide 29 mmol/L (22-29); Chloride 101 mmol/L (96-108); Creatinine Clr Calc Pharmacy 109.3; Estimated Glomerular Filt Rate > 60; Glucose Random 136 mg/dL (60-115); Magnesium 1.7 mg/dL (1.6-2.6); Potassium 2.7 mmol/L (3.3-5.1); Sodium 143 mmol/L (135-145)
[2023-07-11] MEDS: Ketorolac Tromethamine 15 MG/ML VIAL IVPUSH ×3 (02:31→12:17)
[2023-07-11] MEDS: ceFAZolin Sodium/Dextrose,Iso 2 GM/50 ML PIGGYBACK IV ×2 (02:31→10:31)
[2023-07-11] MEDS: 0.9 % Sodium Chloride Flush 3 ML SYRINGE IVFLUSH (02:32)
[2023-07-11 03:29] VITALS: BP 109/60; PULSE 70; RESP 18; TEMP 36.8; O2SAT 92
[2023-07-11] MEDS: oxyCODONE HCl Immed Release 5 MG TABLET 10 MG PO ×2 (06:09→16:12)
--- NOTE | 2023-07-11 07:00 | CA_ITS ---
Transthoracic Echocardiogram Patient (Last, First, Middle): Deborah Miller, Gender: Female Date of : 1950 Age: 72 Procedure Date: 07/11/2023 Procedure Type: Transthoracic Echocardiogram [place] [facility] [place] Height: 167.64 cm Weight: 118.39 kg BSA: 2.24 m2 Heart Rate: bpm BP: 109 / 60 mmHg Cage Tender: Referring MD: Joel Richard MD Symptoms: AF Study Quality: Technically Difficult due to body habitus ECG Rhythm: Sinus Conclusions: - The left ventricular systolic function is normal. The visually estimated ejection fraction is between 55-60%. - No obvious valvular pathology seen on this study. Findings Left Ventricle Normal left ventricular cavity size. There is mildly increased left ventricular wall thickness. The left ventricular systolic function is normal. The visually estimated ejection fraction is between 55-60%. There is no evidence of regional wall motion abnormalities. Diastolic function is normal for age. Right Ventricle Normal right ventricular cavity size and systolic function. Atria Both atria are normal in size. Aortic Valve The aortic valve was not well visualized. There is no aortic valve stenosis. There is no aortic valve regurgitation. Mitral Valve The mitral valve appears normal. There is mild mitral annular calcification. There is no mitral valve regurgitation. There is no mitral valve stenosis. Pulmonic Valve The pulmonic valve was not well visualized. Tricuspid Valve Normal tricuspid valve structure. There is mild tricuspid valve regurgitation. There is no evidence of pulmonary hypertension. Great Vessels The aorta was not well visualized. Venous The inferior vena cava is normal in size and collapses greater than 50% with inspiration. Pericardium/Pleural There is no evidence of pericardial effusion. Prior Study Comparison No prior study available for comparison. Recommendations, Care & Conclusions No obvious valvular pathology seen on this study. Measurements 2D Linear Measurements IVSd: 1.27 0.6-0.9/0.6-1.0 cm LVIDd: 4.19 3.9-5.3/4.2-5.9 cm LVIDd Index: 1.87 2.4-3.2/2.2-3.1 cm/m2 LVIDs: 2.75 2.0-3.6 cm LVPWd: 1.28 0.7-1.1 cm Ao Root: 3.30 2.1-3.5 cm LA Diam: 2.50 2.7-3.8/3.0-4.0 cm LAIDs Index: 1.12 1.5-2.3 cm/m2 LV Mass: 241.93 67-162/88-224 g LV Mass Index: 108.00 43-95/49-115 g/m2 LVOT Diam: 2.20 3.0+(-)1.3 cm Mitral Valve MV Pk E: 0.69 MV PK A: 0.96 MV Decel Time: 156.00 E/A: 0.70 E'Lateral: 11.40 E'Medial: 8.05 E/E' Med: 8.50 E/E' Lat: 6.00 PHT: 46.00 MVA PHT: 4.78 Decel Gulf: 4.38 Aortic Valve AoV Pk Johann: 1.29 AoV Mn Johann: 0.84 AoV VTI: 0.27 AoV Pk Grad: 7.00 Aov Mn Grad: 3.00 SANTIAGO Cont.VTI: 3.37 LVOT LVOT Pk Johann: 1.22 LVOT Mn Johann: 0.69 LVOT VTI: 0.24 LVOT Pk Grad: 6.00 LVOT Mn Grad: 3.00 LVOT Diam: 2.20 LVOT Area: 3.80 Diastolic Function MV Pk E: 0.69 MV Pk A: 0.96 E/A: 0.70 E'Medial: 8.05 E/E' Med: 8.50 E' Laterial: 11.40 E/E' Lat: 6.00 Right Ventricle TAPSE (mm): 23.00 Tricuspid Valve TR Pk Johann: 2.80 TR Pk Grad: 31.00 RA Press: 3.00 RVSP: 34.00 Great Vessels Aorta Ao Root-2D: 3.30 2.0-3.7 cm Ao Asc: 3.20 2.1-3.4 cm Pulmonary Valve PV Pk Johann: 1.25 Peak PV Grad: 6.00 Updated in Other Vendor System with Status of Final Martinez Connors MD electronically signed on 07/11/2023 12:24:25 PM with status of Final
[2023-07-11 07:20] VITALS: BP 105/58; PULSE 73; RESP 18; TEMP 36.1; O2SAT 97
[2023-07-11] MEDS: hydroCHLOROthiazide 12.5 MG TABLET PO (08:01)
[2023-07-11] MEDS: Cholecalciferol (Vitamin D3) 25 MCG TABLET PO (08:03)
[2023-07-11] MEDS: Potassium Chloride ER 20 MEQ TAB.ER.PRT 40 MEQ PO (08:03)
[2023-07-11] MEDS: Magnesium Oxide 400 MG TABLET PO (08:03)
[2023-07-11] MEDS: Docusate Sodium 100 MG CAPSULE PO (08:03)
[2023-07-11] MEDS: Losartan Potassium 50 MG TABLET PO (08:03)
[2023-07-11] MEDS: Potassium Chloride/H20 10 MEQ/100 ML PIGGYBACK 100 MEQ IV ×4 (08:04→12:17)
[2023-07-11] MEDS: 0.9 % Sodium Chloride 1,000 ML 75 ML IVCONT (08:04)
--- NOTE | 2023-07-11 08:35 | PHA.MEDREC ---
Pharmacy Consult ? Medication Reconciliation Pharmacy has completed the medication reconciliation. Spoke to patient at bedside, able to name HCTZ 12.5mg and losartan 25mg on her own. Says those are the last medications she took about a week ago. States she does not take gabapentin, baclofen, or methocarbamol. States she was recently started on prednisone and that she took two tablets once daily, recent script for 20mg tablets.
--- NOTE | 2023-07-11 09:17 | HO.NEURO.PN ---
Neurosurgery Operative Note Date of Service: 07/11/23 Narrative: POD: 1 Procedure: L4-5 laminotomy Deborah was seen this morning sitting upright in her bedside recliner eating breakfast. She is a 72-year-old female s/p minimally invasive laminotomy yesterday who was admitted by internal medicine to telemetry last night after she went into AFib post-anesthesia. She was given 2.5mg and 5mg via IV push of metoprolol last night and eventually converted back to sinus rhythm. Of note she was found to have a low potassium of 2.7, which has been treated with PO and IV potassium. She reports she is eating well and voiding well without the need for a catheter. She does report some irritation at the infusion site of her potassium but she was advised that this is a normal reaction to IV potassium. She states she has some low back discomfort but overall feels well and has good pain control. She does report some nonspecific tingling/numbness in her right thigh, but states that is not of affect function at all. Afebrile, vitals signs stable. Patient has 5/5 strength in UE/LE when examined in bed today. No neurological deficits. Back dressings without staining with no signs of hematoma. No active sanguineous drainage. Area is dry. Plan: Patient is s/p uneventful L4-5 laminotomy. She developed AFib postoperatively and was admitted by Internal Medicine. They are undergoing electrolyte replacement of ordered an echocardiogram. From our surgical standpoint she is Neurologically intact, her vital signs are stable, and she has good strength. We encouraged her to get up frequently and ambulate with nursing staff. She understands that she should follow-up with our office in 2-3 weeks after she is discharged from the hospital by our Internal Medicine team. Dr. Rogers, the attending Neurosurgeon, is in agreement with this plan. Ashkan Rogers MD,PhD [facility]
--- NOTE | 2023-07-11 10:33 | MHC.CM.PN ---
Minh IMM 07/11. Pt lives at home with her , is self-care. Returning home is the goal, pts will transport her home. Pt has a HCP, copy requested. PCP: Dr. Nadine Guzman
[2023-07-11 11:16] VITALS: BP 110/55; PULSE 84; RESP 20; TEMP 36.4; O2SAT 95
--- NOTE | 2023-07-11 11:17 | PM.CNCAR ---
History of Present Illness History of Present Illness Date of Service: 07/11/23 Chief complaint: AF/RVR Narrative: This is a cardiology consultation regarding atrial fibrillation with rapid rate. Patient apparently came for back surgery is today. After this, she apparently went into atrial fibrillation rapid rate in the 130s. She was given some IV metoprolol but the rate was still fast. It seems that she when she got admitted. Patient states she does not have any cardiac history. No history of any coronary artery disease, myocardial infarction or cardiomyopathy. In the last couple months, she has been having lot of back pain but prior to that, she was apparently quite active without any major limitations. Has not noticed any symptoms like chest pain or shortness of breath or palpitations in the past. Even when she had atrial fibrillation rapid rate is today, she did not feel anything. Otherwise, has hypertension at baseline. Review of Systems Review of Systems: Yes all other systems are reviewed and are negative Constitutional: Constitutional: Reports as per HPI and Reports no additional constitutional complaints Eyes: Eyes: Reports as per HPI and Denies no additional eye complaints ENT: Denies system reviewed and no additional complaints, except as documented and Reports as per HPI Cardiovascular: Cardiovascular: Reports as per HPI, Reports no additional cardiovascular complaints, Denies acrocyanosis, Denies cool extremities, Denies chest pain, Denies leg edema, Denies lightheadedness, Denies palpitations and Denies dyspnea Respiratory: Respiratory: Reports as per HPI, Denies no additional respiratory complaints and Denies dyspnea Gastrointestinal: Gastrointestinal: Reports as per HPI and Denies no additional gastrointestinal complaints Genitourinary: Genitourinary: Reports as per HPI Musculoskeletal: Musculoskeletal: Reports no additional musculoskeletal complaints and Reports as per HPI Integumentary/Breasts: Skin/Breast: Reports system reviewed and no additional complaints, except as docu Neurologic: Reports system reviewed and no additional complaints, except as documented and Reports as per HPI Psychiatric: Psychiatric: Reports no additional psychiatric complaints and Reports as per HPI Endocrine: Endocrine: Reports no additional endocrine complaints, Reports as per HPI and Denies palpitations Hematologic/Lymphatic: Hematologic/Lymphatic: Reports no additional hematologic/lymphatic complaints and Reports as per HPI Allergic/Immunologic: Allergic/Immunologic: Reports no additional allergic/immunologic complaints and Reports as per HPI [facility] Past Medical History Medical History Back pain Arthritis Seizures HTN (hypertension) Family History Family History (Updated 07/11/23 @ 11:19 by Martinez Connors MD) Mother Diabetes Surgical History Surgical History Hx of section Hx of foot surgery Hx of bilateral salpingo-oophorectomy Hx of total hysterectomy History of open reduction and internal fixation (ORIF) procedure Hx of tonsillectomy Hx of repair of rotator cuff Hx of total knee replacement Social History Social History Household Members: Spouse Housing: House Are you a primary director career services to a significant other at home: No Do you presently have visiting nurse or other home services: No Patient Tobacco Use Status: Never used Tobacco Use of substances other than those prescribed or required for medical reasons: No Currently Displaying Signs/Symptoms of Drug Intoxication Withdrawal: No Have you been hit, kicked, punched, or otherwise hurt by someone within the past year? If so, by whom?: No Are you DNR?: No Advance Directives: No Advance Directives Information Provided: Yes Advance Directives on File: No Do you have thoughts of harming others: None Do you have a plan to hurt others: No Plan Recently lost weight without trying: No Eating poorly because of decreased appetite: No Nutrition Risks: No Nutritional Risk Patient : No : No Poor oral hygiene: No service: No Meds Allergies Allergy/AdvReac Type Severity Reaction Status Date / Time acetaminophen [From Tylenol] Allergy Swelling Verified 06/11/23 11:40 baclofen Allergy Unknown Verified 06/11/23 11:55 Iodinated Contrast Media Allergy Rash Verified 06/11/23 11:40 [IV Contrast Dye] lisinopril Allergy Cough Verified 06/11/23 11:54 Active Medications: Current Medications Docusate Sodium (Docusate Sodium 100 Mg Capsule) 100 mg PO BID [facility]N Last Admin: 07/11/23 08:03 Dose: 100 mg Fentanyl (Fentanyl Citrate/Pf 100 Mcg/2 Ml Vial) 25 mcg IVPUSH Q5M PRN; Protocol PRN Reason: Pain, Moderate(Pain Scale 4-6) Last Admin: 07/10/23 17:05 Dose: 25 mcg Gabapentin (Gabapentin 300 Mg Capsule) 300 mg PO TID [facility] Last Admin: 07/11/23 08:04 Dose: Not Given Hydrochlorothiazide (Hydrochlorothiazide 12.5 Mg Tablet) 12.5 mg PO DAILY [facility]; Protocol Last Admin: 07/11/23 08:01 Dose: 12.5 mg Hydromorphone HCl (Hydromorphone Hcl 1 Mg/Ml Syringe) 1 mg IVPUSH Q3H PRN; Protocol PRN Reason: Pain, Severe (Pain Scale 7-10) Potassium Chloride (Potassium Chloride/H20) 10 meq in 100 mls @ 100 mls/hr IV Q1H [facility] Stop: 07/11/23 11:44 Last Admin: 07/11/23 11:08 Dose: 100 mls/hr Ketorolac Tromethamine (Ketorolac Tromethamine 15 Mg/Ml Vial) 15 mg IVPUSH Q6H [facility] Last Admin: 07/11/23 06:06 Dose: 15 mg Losartan Potassium (Losartan Potassium 50 Mg Tablet) 50 mg PO DAILY [facility]; Protocol Last Admin: 07/11/23 08:03 Dose: 50 mg Magnesium Oxide (Magnesium Oxide 400 Mg Tablet) 400 mg PO DAILY [facility] Last Admin: 07/11/23 08:03 Dose: 400 mg Methocarbamol (Methocarbamol 750 Mg Tablet) 750 mg PO Q6H PRN PRN Reason: Spasms Ondansetron HCl (Ondansetron Hcl 4 Mg/2 Ml Vial) 4 mg IVPUSH ONCE PRN PRN Reason: Nausea and Vomiting Ondansetron HCl (Ondansetron Hcl 4 Mg/2 Ml Vial) 4 mg IVPUSH Q6H PRN PRN Reason: Nausea and Vomiting Oxycodone HCl (Oxycodone Hcl Immed Release 5 Mg Tablet) 5 mg PO Q4H PRN PRN Reason: Pain, Moderate(Pain Scale 4-6) Oxycodone HCl (Oxycodone Hcl Immed Release 5 Mg Tablet) 10 mg PO Q4H PRN PRN Reason: Pain, Severe (Pain Scale 7-10) Last Admin: 07/11/23 06:09 Dose: 10 mg Sodium Chloride (0.9 % Sodium Chloride Flush 3 Ml Syringe) 3 ml IVFLUSH QSHIFT [facility] Last Admin: 07/11/23 07:28 Dose: Not Given Vitamin D (Cholecalciferol (Vitamin D3) 25 Mcg Tablet) 25 mcg PO DAILY [facility] Last Admin: 07/11/23 08:03 Dose: 25 mcg Home Medications Medication Instructions Recorded Confirmed Last Taken Type cholecalciferol (vitamin D3) 25 25 mcg PO DAILY 06/11/23 06/11/23 Unknown History mcg (1,000 unit) tablet (Vitamin D3) hydrochlorothiazide 12.5 mg capsule 12.5 mg PO DAILY 06/11/23 06/11/23 07/10/23 10:00 History magnesium oxide 400 mg PO DAILY 06/11/23 06/11/23 Unknown History potassium chloride 10 mEq 30 meq PO DAILY 06/11/23 06/11/23 Unknown History tablet,extended release(part/cryst) (Klor-Con M) losartan 25 mg tablet 50 mg PO DAILY 07/10/23 07/10/23 07/10/23 10:00 History fluticasone propionate 110 1 inh inhalation BID 07/11/23 07/11/23 Unknown History mcg/actuation HFA aerosol inhaler ibuprofen 600 mg tablet 600 mg PO Q6H PRN pain 07/11/23 07/11/23 Unknown History naproxen 375 mg tablet 375 mg PO DAILY PRN Pain 07/11/23 07/11/23 Unknown History prednisone 20 mg tablet 20 mg PO DAILY 07/11/23 07/11/23 Unknown History Physical Exam Vital Signs: Vital Signs: Last Vital Signs Temp 97.0 F 07/11/23 07:20 Pulse 73 07/11/23 07:20 Resp 18 07/11/23 07:20 BP 105/58 L 07/11/23 07:20 Pulse Ox 97 07/11/23 07:20 O2 Del Method Room Air 07/11/23 07:20 O2 Flow Rate 2.5 07/11/23 03:29 BMI result Body Mass Index 42.1 Const: General: comfortable and no acute distress Orientation/consciousness: patient oriented x3 HEENT: Other: Unremarkable Head: Yes normal to inspection Neck: Neck: Yes normal visual inspection Chest: Chest palpation & inspection: normal inspection of the chest Resp: Auscultation: clear to auscultation bilaterally Cardio: Palpation: normal PMI Heart sounds: S1 normal heart sound present, S2 normal heart sound present, no gallops, no murmurs and no rubs GI: Palpation (GI): Soft to palpation Back/Spine/Pelvis: Other: unremarkable Skin: General skin exam: no rashes or lesions noted Neuro: General: patient oriented x3 Extrem: General: Yes normal to inspection Psych: Mental Status: mental status grossly normal Objective Labs and Meds 07/10/23 18:54 07/10/23 19:29 Lab results: Laboratory Results - last 24 hr 07/10/23 07/10/23 18:54 19:29 WBC 10.9 H RBC 4.25 Hgb 12.5 Hct 37.5 MCV 88.2 MCH 29.4 MCHC 33.3 RDW 14.0 Plt Count 188 D MPV 11.6 Absolute Nucleated RBC 0.000 Nucleated RBC % (auto) 0.0 Sodium 143 Potassium 2.7 L Chloride 101 Carbon Dioxide 29 Anion Gap 16 BUN 11 Creatinine 0.60 Estim Creat Clear Calc 109.3 Estimated GFR > 60 Random Glucose 136 H Calcium 8.6 D Magnesium 1.7 TSH 1.98 ECG Interpretation: Initial EKG shows atrial fibrillation rate of 116/Min. Nonspecific ST-T changes. Leftward axis. Prior EKG from May shows sinus rhythm. On telemetry, she is back in sinus rhythm. Imaging Radiologist's impression: Impressions Chest X-Ray 07/10/23 18:48 IMPRESSION: Elevated left hemidiaphragm. No acute cardiopulmonary disease. Prominent mediastinum and lee. Correlate with previous radiographs. PA and lateral recommended when feasible. Assessment and Plan (1) Atrial fibrillation with rapid ventricular response: Status: Acute Plan Postoperative atrial fibrillation rapid rate and now she is back in sinus rhythm. No previous history of the same. We can use beta-blockers for rate control and stop the losartan/hydrochlorothiazide. Additionally, she has hypokalemia and that might play a role in the arrhythmia. To be corrected. Echocardiogram is being performed and can be reviewed once completed. Will need outpatient Holter monitor performed. Discussed with family at bedside. Will follow-up with you. Procedures Date of Service Date of Service: 07/11/23
--- NOTE | 2023-07-11 11:44 | ECG_ITS ---
Test Reason : afib Blood Pressure : / mmHG Vent. Rate : 116 BPM Atrial Rate : 000 BPM P-R Int : 000 ms QRS Dur : 086 ms QT Int : 360 ms P-R-T Axes : 000 -20 177 degrees QTc Int : 500 ms Atrial fibrillation with rapid ventricular response Nonspecific ST and T wave abnormality Abnormal ECG When compared with ECG of 11-JUN-2023 13:06, Atrial fibrillation has replaced Sinus rhythm Vent. rate has increased BY 41 BPM Non-specific change in ST segment in Inferior leads Nonspecific T wave abnormality now evident in Lateral leads Referred By: Joel Richard Electronically Signed By:GABI JUSTIN MD
--- NOTE | 2023-07-11 11:44 | HO.POSTANES ---
Post Anesthesia Evaluation Post Anesthesia Evaluation Date of Service: 07/11/23 Vital Signs: Vital Signs Temp Pulse Resp BP Pulse Ox O2 Del Method O2 Flow Rate 07/11/23 11:16 97.5 F 84 20 110/55 L 95 Room Air 07/11/23 07:20 97.0 F 73 18 105/58 L 97 Room Air 07/11/23 03:29 98.2 F 70 18 109/60 92 Nasal Cannula 2.5 07/10/23 23:48 98.0 F 72 19 99/55 L 94 Nasal Cannula Anesthesia: General Endotracheal-GETA Mental Status: Awake Pain Control: Satisfactory Nausea/Vomiting: None Hydration: Adequate Anesthesia-Related Issues: No Anes. Related Issues Comments: Patient went into Afib in PACU, cardiology and hospitalists called. Patient seen by both and was admitted overnight. Patient now back in sinus rhythm.
--- NOTE | 2023-07-11 11:55 | P.DS_ITS ---
DS: Providers Provider Date of Service: 07/11/23 Date of admission: 07/10/23 16:51 Date of discharge: 07/11/23 Primary care physician: Nonstaff Physician Consults: 07/10/23 16:51 Consult to Cardiology Routine Consulting Provider: [facility] Cardiovascular Services Reason for consultation: new onset AF 07/10/23 16:53 Consult to Internal Medicine Routine Consulting Provider: Ashkan Manzano Reason for consultation: Patient developed AFib after surgery, was admitted to telemetry unit. Has provider been notified: Yes DS: Diagnosis Discharge Diagnosis (1) Atrial fibrillation with rapid ventricular response: Status: Acute (2) Spinal stenosis: Status: Acute (3) Hypokalemia: Status: Acute (4) Morbid obesity: Status: Acute DS: Summary Hospital Course Hospital Course: from my admission H+P, 07/10/23: 72yo F who underwent L4-L5 laminectomy/partial facetectomy/foraminotomy today for L4-L5 spinal stenosis and in the PACU, went into AF/RVR with rate in the 130s. She was given 3 mg of IV metoprolol and she is still in AF/RVR with rate in the 110s. BP currently 154/85. No palpitations, dyspnea, or lightheadedness. No chest pain. No prior hx of AF. No hx of coronary disease, CVA, or CHF. She has longstanding HTN and is on HCTZ and losartan. Also remote history of seizures in 1996 but not on any AEDs. She was given another 5 mg of IV metoprolol. She was admitted to the telemetry unit. Within 4 hours of onset, she converted back to NSR and remained in NSR. Cardiology was consulted. Antihypertensive regimen was changed from HCTZ + losartan to metoprolol succinate. Echocardiogram showed no abnormalities. She will follow up with Cardiology in 1-2 weeks for Holter monitoring. Hypokalemia was diagnosed and repleted. She will follow up with Neurosurgery as scheduled in 2-3 weeks. Time Attestation Discharge coordination time: Greater than 30 minutes Quality: Safe Use of Opioids Does Pt have an Active Cancer Diagnosis on the Problem List?: No Quality: Stroke Does the patient have a stroke diagnosis?: No Physical Exam Vital Signs: Vital Signs: Last Vital Signs Temp 97.5 F 07/11/23 11:16 Pulse 84 07/11/23 11:16 Resp 20 11/17/23 11:16 BP 110/55 L 07/11/23 11:16 Pulse Ox 95 07/11/23 11:16 O2 Del Method Room Air 07/11/23 11:16 O2 Flow Rate 2.5 07/11/23 03:29 BMI result Body Mass Index 42.1 Gen: in no acute distress HEENT: sclera anicteric, moist mucus membranes Neck: supple Lungs: clear to auscultation bilaterally Heart: regular rate and rhythm, no murmurs Abd: soft, non-tender, non-distended Ext: no edema Skin: warm/well-perfused Neuro: alert and oriented x3, no focal findings Psych: appropriate affect DS: Data Data Completed and Pending Completed studies during hospitalization [Text1]: Laboratory Results WBC 10.9 X10*3/uL (4.8-10.8) H 07/10/23 18:54 RBC 4.25 X10*6/uL (4.20-5.50) 07/10/23 18:54 Hgb 12.5 g/dl (12.0-16.0) 07/10/23 18:54 Hct 37.5 % (37.0-47.0) 07/10/23 18:54 MCV 88.2 fL (80.0-98.0) 07/10/23 18:54 MCH 29.4 pg (27.0-33.0) 07/10/23 18:54 MCHC 33.3 g/dl (31.0-35.0) 07/10/23 18:54 RDW 14.0 % (11.0-16.0) 07/10/23 18:54 Plt Count 188 X10*3/uL (160-400) D 07/10/23 18:54 MPV 11.6 fL (9.4-12.3) 07/10/23 18:54 Absolute Nucleated RBC 0.000 X10*3/uL (0.0-0.012) 07/10/23 18:54 Nucleated RBC % (auto) 0.0 /100WBC (0.0-0.2) 07/10/23 18:54 Sodium 143 mmol/L (135-145) 07/10/23 19:29 Potassium 2.7 mmol/L (3.3-5.1) L 07/10/23 19:29 Chloride 101 mmol/L (96-108) 07/10/23 19:29 Carbon Dioxide 29 mmol/L (22-29) 07/10/23 19:29 Anion Gap 16 (12-20) 07/10/23 19:29 BUN 11 mg/dL (9-16) 07/10/23 19:29 Creatinine 0.60 mg/dL (0.5-1.4) 07/10/23 19:29 Estim Creat Clear Calc 109.3 07/10/23 19:29 Estimated GFR > 60 07/10/23 19:29 Random Glucose 136 mg/dL (60-115) H 07/10/23 19:29 Calcium 8.6 mg/dL (8.4-10.2) D 07/10/23 19:29 Magnesium 1.7 mg/dL (1.6-2.6) 07/10/23 19:29 TSH 1.98 uIU/mL (0.32-4.0) 07/10/23 19:29 Impressions Chest X-Ray 07/10/23 18:48 IMPRESSION: Elevated left hemidiaphragm. No acute cardiopulmonary disease. Prominent mediastinum and lee. Correlate with previous radiographs. PA and lateral recommended when feasible. TTE 07/11/23 - The left ventricular systolic function is normal. The visually estimated ejection fraction is between 55-60%. - No obvious valvular pathology seen on this study. Discharge Plan Discharge Anticipated Discharge Date/Time: 07/11/23 09:51 Patient Disposition: Home, Self-Care Discharge Diagnosis: S/P L4-5 Laminotomy new-onset atrial fibrillation Referrals: Physician,Nonstaff [Primary Care Provider] - 1 Week Ashkan Manzano PA [Physician Formal Wear Rental Clerk] - 2 Weeks Martinez Connors MD [Physician] - 1 Week Discharge Medications: New oxycodone 5 mg tablet 5 mg PO Q6H PRN (Reason: severe pain (scale score 7-10)) Qty: 30 0RF Rx Instructions: Partial Fill upon patient request. metoprolol succinate 25 mg tablet extended release 24 hr 25 mg PO BID Qty: 60 0RF Continued cholecalciferol (vitamin D3) [Vitamin D3] 25 mcg (1,000 unit) tablet 25 mcg PO DAILY magnesium oxide 400 mg magnesium Capsule 400 mg PO DAILY naproxen 375 mg tablet 375 mg PO DAILY PRN (Reason: Pain) ibuprofen 600 mg tablet 600 mg PO Q6H PRN (Reason: pain) fluticasone propionate 110 mcg/actuation HFA aerosol inhaler 1 inh inhalation BID Held potassium chloride [Klor-Con M10] 10 mEq tablet,ER particles/crystals 30 meq PO DAILY Hold Instructions: Resume on 08/10/23. Do not continue unless instructed by prescribing physician prednisone 20 mg tablet 20 mg PO DAILY Hold Instructions: Resume on 08/10/23. Do not continue unless instructed by prescribing physician Discontinued hydrochlorothiazide 12.5 mg capsule 12.5 mg PO DAILY losartan 25 mg tablet 50 mg PO DAILY Discharge Orders: Discharge Order (Routine); Ordered 07/11/23 Ordered By: Joel Richard Diet: Advance to usual diet Activity on Discharge: As tolerated Activity Restrictions/Additional Instructions: After your spinal surgery we ask you to observe the following restrictions/guidelines: Activity: It is normal to feel some discomfort as you increase your activity, but that will improve with time. We ask you avoid heavy lifting or acitivities that cause pain. As a general rule, 8lbs is a safe limit for lifting right after surgery. Walk as much as you feel comfortable but not to exhaustion. You will feel extra tired the first few days after surgery. Stay well hydrated. It is OK to walk up and down stairs You may return to driving when you are off narcotics (such as vicodin, oxycodone, dilaudid, etc), and you are back to normal functional capacity. If you have any concerns please check with office before driving. Return to work is specific to each patient and each surgery, so please speak with your doctor/PA at first follow up. Please bring paperwork such as FMLA at that time if you need it filled out. Medications: We will give you a short supply of narcotics after surgery (usually one weeks worth). If you need more please call the office but do not use more than prescribed. You will need to give our office 48 hours notice if you need narcotics refilled and we do not fill narcotics on weekends or evenings. If you are on a narcotic, it is a good idea to take a stool softener such as colace or senna to avoid constipation If you take blood thinner such as aspirin, Plavix, Coumadin, Effient, Eliquis etc for conditions such as Afib, DVT, Pulmonary embolus, coronary disease, stent s etc please speak with your surgeon about specific details as to when you can resume these medications. You can resume NSAIDs on post op day 1 (eg: Motrin, Naproxen, etc). Follow up: Please call the office, , after surgery to arrange a 3 week follow up for wound check. Wound Care: You may remove your dressing on the first day after surgery. You may leave open to air. Please do not remove the steri strips underneath. they will fall off on their own in one week. IT IS NORMAL FOR THE WOUND TO OOZE OR BE BLOODY FOR A FEW DAYS AFTER SURGERY. IF THIS HAPPENS JUST PLACE NEW DRESSING OVER IT TO AVOID STAINING CLOTHES. You may shower on post op day # 1 We ask that you do not let the water soak the wound. If it does get wet, just towel dry lightly. Please do not scrub your incision or place any type of chemical/ointment on the wound. No tub baths, pools or jacuzzis for one month. If you have any leaking or redness from your wound, or fevers, please call the office. Care Plan Goals: Return to normal activity as tolerated. Follow-up with any/all referrals recommended by Internal Medicine. Follow-up with primary care provider for postoperative evaluation Health Concerns: Atrial fibrillation Plan of Treatment: Follow-up in office in 2-3 weeks [Neurosurgery] Follow up with Cardiology at [facility] in 1-2 weeks for Holter monitoring. Stop hydrochlorothiazide and losartan. Instead, take metoprolol succinate 25 mg twice daily. This will controll BP and fast heart rate in case of recurrent atrial fibrillation. Please follow up with your primary care doctor within 1 week. Return to the hospital if you experience recurrent or worsening symptoms. Assessment: Patient is s/p uneventful L4-5 laminotomy. She developed AFib postoperatively and was admitted by Internal Medicine. They are undergoing electrolyte replacement of ordered an echocardiogram. From our surgical standpoint she is Neurologically intact, her vital signs are stable, and she has good strength. We encouraged her to get up frequently and ambulate with nursing staff. She understands that she should follow-up with our office in 2-3 weeks after she is discharged from the hospital by our Internal Medicine team. Dr. Rogers, the attending Neurosurgeon, is in agreement with this plan.
[2023-07-11] MEDS: Metoprolol Succinate ER 25 MG TAB.ER.24H PO (12:17)
[2023-07-11 15:04] LABS: Anion Gap 14 (12-20); Blood Urea Nitrogen 19 mg/dL (9-16); Calcium 7.7 mg/dL (8.4-10.2); Carbon Dioxide 26 mmol/L (22-29); Chloride 104 mmol/L (96-108); Creatinine Clr Calc Pharmacy 92.3; Estimated Glomerular Filt Rate > 60; Glucose Random 123 mg/dL (60-115); Potassium 3.5 mmol/L (3.3-5.1); Sodium 140 mmol/L (135-145)
[2023-07-11 15:21] VITALS: BP 110/55; PULSE 84; O2SAT 95
--- NOTE | 2023-07-11 15:30 | MHC.CM.PN ---
Pt is medically cleared for D/C home self-care, pts to transport her home.
== END 2023-07-11 18:55 | disposition home or self-care (01) | DRG 519 ==
LOC: HO.EDOVER 16:59 → HO.IMC 18:04
PROVIDERS: Neurological Surgery; Nurse Practitioner; Admitting Provider Family Medicine; PCP Internal Medicine; Visit Provider Family Medicine
PROC: 00NY0ZZ Release Lumbar Spinal Cord, Open Approach (ICD-10-PCS; principal; 2023-07-10 14:50)
DX: M48.062 Spinal stenosis, lumbar region with neurogenic claudication (principal); I97.89 Other postprocedural complications and disorders of the circulatory system, not elsewhere classified; Z91.041 Radiographic dye allergy status; Z79.51 Long term (current) use of inhaled steroids; Z79.52 Long term (current) use of systemic steroids; Z79.899 Other long term (current) drug therapy
CPT/HCPCS: 36415; 71045; 71046; 80048; 83735; 84443; 85027; 93005; 93306; 97162; J0690; J1100; J1885; J1920; J2371; J2405; J2704; J3010; J3480; Q9957

== ENCOUNTER → 2023-07-10 16:51 | Outpatient (BNV) | payer OTHER, SELFPAY | PROVIDERS: Admitting Provider Family Medicine; Visit Provider Internal Medicine | DX: I48.91 Unspecified atrial fibrillation (principal) | CPT/HCPCS: 99223 ==

== ENCOUNTER → 2023-07-10 16:51 | Outpatient (BNV) | payer OTHER, SELFPAY | PROVIDERS: Admitting Provider Family Medicine; Visit Provider Family Medicine | DX: I48.91 Unspecified atrial fibrillation (principal); E66.01 Morbid (severe) obesity due to excess calories; Z68.41 Body mass index [BMI] 40.0-44.9, adult; M48.00 Spinal stenosis, site unspecified; E87.6 Hypokalemia | CPT/HCPCS: 99223; 99239 ==

== ENCOUNTER → 2023-07-21 09:58 | Outpatient (REF) | payer OTHER, SELFPAY ==
--- NOTE | 2023-07-21 10:00 | HM_ITS ---
* Total monitoring time about 9 days. * Underlying rhythm is sinus. Average ventricular rate 92/Min. Range 72 to 135/Min. About 16% of the time, rate > 100/Min. * Rare supraventricular ectopy. Minimal burden. Very brief runs. * Very rare ventricular ectopy. * No significant pauses or AV blocks. * Patient diary lists 'electric shock on shoulder'- EKG strip at this time shows sinus rhythm. MTDD
== END ==
LOC: HO.CARD 09:58
PROVIDERS: Visit Provider Internal Medicine
DX: I48.91 Unspecified atrial fibrillation (principal)
CPT/HCPCS: 93242

== ENCOUNTER → 2023-07-21 10:00 | Outpatient (BNV) | payer OTHER, SELFPAY | PROVIDERS: Visit Provider Internal Medicine | DX: I48.91 Unspecified atrial fibrillation (principal) | CPT/HCPCS: 93248 ==

== ENCOUNTER 2023-07-31 10:41 | Outpatient (AMB) | payer OTHER, SELFPAY ==
--- NOTE | 2023-07-31 11:14 | A.OFFVIS_ITS ---
Intake Intake Visit Reasons: 1st post op Intake Note: Pt here for her 1st post op Allergies acetaminophen [From Tylenol] Allergy (Verified 06/11/23 11:40) Swelling baclofen Allergy (Verified 06/11/23 11:55) Unknown Iodinated Contrast Media [IV Contrast Dye] Allergy (Verified 06/11/23 11:40) Rash lisinopril Allergy (Verified 06/11/23 11:54) Cough PFSH Medical History Back pain Arthritis Seizures HTN (hypertension) Surgical History Hx of section Hx of foot surgery Hx of bilateral salpingo-oophorectomy Hx of total hysterectomy History of open reduction and internal fixation (ORIF) procedure Hx of tonsillectomy Hx of repair of rotator cuff Hx of total knee replacement Family History (Updated 07/11/23 @ 11:19 by Martinez Connors MD) Mother Diabetes Social History Household Members: Spouse Housing: House Are you a primary wound care nurse to a significant other at home: No Do you presently have visiting nurse or other home services: No Comment: counts correct Patient Tobacco Use Status: Never used Tobacco service: No Assessment & Plan Assessment & Plan (1) S/P spinal surgery: Code(s): Z98.890 - Other specified postprocedural states Plan Procedure: L4-5 Laminotomy, Partial facetectomy Deborah comes in today for her 1st postoperative visit. She reports she is very satisfied with the surgery and feels much better than she did pre-operatively, however she continues to have some nonspecific numbness on her right thigh that is intermittent. She is up walking around and completing the majority of her ADLs. She still reports mild low back pain with good relief with [id number]-[id number]-[id number] pain medications. Of note she had a complicated postoperative course and developed AFib which was eventually converted back to normal sinus rhythm in the hospital with the addition of metoprolol. She is being followed by her primary care and has a follow-up appointment with an outpatient car diologist to is going to readdress her development of AFib. Her primary care provider will be restarting her on hydrochlorothiazide. No neurological deficit. Mobility is intact. Sensation grossly intact. Patient is able to ambulate well, rises from a seated position without difficulty. Her incision site was still in the process of healing and had some notable scab formation. Her wound has approximated well however some of the skin edges are pulled away from one another. Due to her anatomy she is able to pull the skin edges apart by bending over, but can not reapproximate them when standing upright. I ended up having her stand upright and applied some Exofin with an imbedded Steri-Strips in order to better achieve continued closure. Plan: We will follow-up with the patient in 6 weeks for her 2nd postoperative visit. I ordered a 5 day course of doxycycline for the patient strictly for prophylaxis considering she has been opening/closing the skin edges of her incision when she changes positions. Ashkan Rogers MD,PhD [facility] Medications: New doxycycline hyclate 100 mg PO BID 10 caps 0RF prophylaxis for wound closure 5 days Coding Level of Care Code Global (62062) Diagnoses S/P spinal surgery Z98.890
== END 2023-07-31 12:13 | disposition home or self-care (01) ==
PROVIDERS: Visit Provider Physician Assistant
DX: Z98.890 Other specified postprocedural states (principal)
CPT/HCPCS: 99024

== ENCOUNTER → 2023-07-31 10:41 | Outpatient (BNVA) | payer OTHER, SELFPAY | PROVIDERS: Visit Provider Physician Assistant ==

== ENCOUNTER 2023-08-29 13:04 | Outpatient (AMB) | payer OTHER, SELFPAY ==
[2023-08-29 13:08] VITALS: BP 160/90; PULSE 76; BMI 40.6
--- NOTE | 2023-08-29 13:08 | MHC.OFFVIS ---
Intake Vital Signs 08/29/23 13:08 Height 5 ft 6 in Weight 251 lb 12.286 oz BMI 40.6 BP 160/90 H Blood Pressure Location Lt brachial Position Sitting Pulse 76 Pulse Source Pulse Oximeter Intake Visit Reasons: [facility] [place], post holter Intake Note: [facility] [place]/up post holter. pt its feeling fine. 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 Required: No Accompanied by: Self / Same As Patient Allergies acetaminophen [From Tylenol] Allergy (Verified 06/11/23 11:40) Swelling baclofen Allergy (Verified 06/11/23 11:55) Unknown Iodinated Contrast Media [IV Contrast Dye] Allergy (Verified 06/11/23 11:40) Rash lisinopril Allergy (Verified 06/11/23 11:54) Cough Medication List - Last Reconciled 08/29/23 by WANDA Harris cholecalciferol (vitamin D3) (Vitamin D3) 25 mcg PO DAILY fluticasone propionate 110 mcg/actuation 1 inh inhalation BID hydrochlorothiazide mg PO ibuprofen 600 mg PO Q6H PRN magnesium oxide 400 mg PO DAILY metoprolol succinate ER 25 mg PO BID potassium chloride ER (Klor-Con M) 30 mEq PO DAILY HPI [facility] [place] up, post holter HPI Details Deborah is a 73-year-old female past medical history of hypertension, morbid obesity who was recently at [facility] undergoing spinal surgery when she developed new onset atrial fibrillation. She was treated for heart rate control and within 4 hours she converted to sinus rhythm. She was not started on anticoagulation due to isolated episode. She was hypokalemic and her potassium was repleted. She was monitored overnight without recurrence. An echocardiogram was done showing no acute at [facility]. Outpatient Holter monitor was ordered. Today she reports she has been doing well since her hospital discharge. She has not had any known recurrent atrial fibrillation. She does not recall feeling any heart palpitations when she was in the hospital. No chest discomfort at rest or with activity. No shortness of breath, presyncope, syncope, falls. No PND, orthopnea or edema. She continues to recover from her back surgery. She has been doing only light activities. Her blood pressure is elevated today and tells me that she has white coat syndrome. She states that following her hospital discharge her usual hydrochlorothiazide was restarted by her PCP. She remains off her usual losartan due to the addition of the metoprolol. [facility] Medical History (Updated 08/29/23 @ 16:41 by Bibiana Castro NP-C) Back pain Arthritis Seizures HTN (hypertension) Surgical History Hx of section Hx of foot surgery Hx of bilateral salpingo-oophorectomy Hx of total hysterectomy History of open reduction and internal fixation (ORIF) procedure Hx of tonsillectomy Hx of repair of rotator cuff Hx of total knee replacement Family History Mother Diabetes Social History Household Members: Spouse Housing: House Are you a primary home care provider to a significant other at home: No Do you presently have visiting nurse or other home services: No Comment: counts correct Patient Tobacco Use Status: Never used Tobacco service: No Review of Systems Const All systems reviewed & are unremarkable except as noted in HPI and below Denies chills, Denies fatigue, Denies fever(s), Denies frequent falls, Denies weakness, Denies weight gain and Denies weight loss ENT Denies dizziness Card Denies chest pain, Denies rapid heart rate, Denies leg edema, Denies lightheadedness, Denies palpitations, Denies dyspnea and Denies dyspnea on exertion Resp Denies cough, Denies dyspnea and Denies dyspnea on exertion GI Denies hematochezia Musc Denies abnormal gait, Denies muscle weakness, Denies numbness, Denies radiating pain into limb and Denies tingling Neuro Denies abnormal gait, Denies dizziness, Denies frequent falls, Denies numbness, Denies tingling and Denies weakness Endo Denies fatigue and Denies palpitations Physical Exam Vital Signs: Last Vital Signs Pulse 76 08/29/23 13:08 BP 160/90 H 08/29/23 13:08 BMI result Body Mass Index 40.6 Const General: cooperative, healthy appearing, comfortable and no acute distress Orientation/consciousness: patient oriented x3 Neck Neck: Yes normal visual inspection and Yes no JVD Resp Effort & Inspection: normal respiratory effort Auscultation: clear to auscultation bilaterally, no crackles, no rales, no rhonchi and no wheezes Cardio Jugular venous distension: no JVD Rate: regular rate Rhythm: regular rhythm Heart sounds: S1 normal heart sound present, S2 normal heart sound present, no murmurs and no rubs Neuro General: patient oriented x3 Extrem General: Yes normal to inspection and No no pedal edema Psych Appearance: grossly normal Mental Status: mental status grossly normal Speech and movement: Normal speech and movement present Assessment & Plan Assessment & Plan (1) Atrial fibrillation: Code(s): I48.91 - Unspecified atrial fibrillation Qualifiers: Atrial fibrillation type: paroxysmal Qualified Code(s): I48.0 - Paroxysmal atrial fibrillation Plan: Episode of atrial fibrillation lasting under 4 hours occurred on 07/10 post spinal surgery. She was treated for heart rate control using IV metoprolol. She was then started on metoprolol XL 25 mg b.i.d.. An echocardiogram showed EF 55-60%, no valve abnormalities, aorta not well visualized. She was not started on anticoagulation at that time. Chads Vasc score of 3 with age, hypertension and female. Her AFib currently known to be a post of episode without documented recurrence. She did have a Holter monitor done on 07/21/2023 for 9 days showing sinus rhythm with average heart rate 92, 16% of the time heart rate greater than 100, rare supraventricular ectopy, minimal burden, very rare ventricular ectopy, no AFib. Today she reports no feelings of heart palpitations or elevated heart rates. She continues on metoprolol XL 25 mg b.i.d.. Diagnosis of atrial fibrillation reviewed with her. Stroke risk with AFib discussed. Will check with her primary treadle cut off saw operator regarding need for anticoagulation. Since it was an isolated episode she may not require long-term anticoagulation. (2) Hypokalemia: Code(s): E87.6 - Hypokalemia Plan: At time of atrial fibrillation labs had shown potassium 2.7. This may have contributed to her episode. She her potassium was repleted and recheck a potassium was 3.5. She tells me she had been on hydrochlorothiazide which was then stopped at her hospital discharge due to the it addition of metoprolol. Since that time she saw her PCP and the hydrochlorothiazide was restarted due to elevated blood pressure readings. Blood pressure is elevated today but she tells me it is related to white coat syndrome. Since she had hypokalemia with hydrochlorothiazide in the past suggest changing her antihypertensive over to Aldactone which is potassium-sparing agent. Her blood pressure is managed by her PCP. Will forward this note to PCP for review. (3) HTN (hypertension): Code(s): I10 - Essential (primary) hypertension Plan: As above (4) S/P spinal surgery: Code(s): Z98.890 - Other specified postprocedural states Plan: As above (5) Hospital discharge follow-up: Code(s): Z09 - Encounter for follow-up examination after completed treatment for conditions other than malignant neoplasm Plan: For spinal surgery Plan Time spent on chart review, documentation, interview and assessment Coding Level of Care Code Est Pt Level 4 (14145) Diagnoses Paroxysmal atrial fibrillation I48.0 Atrial fibrillation type: paroxysmal Hypokalemia E87.6 HTN (hypertension) I10 S/P spinal surgery Z98.890 Hospital discharge follow-up Z09 Time Spent (min) 28
== END 2023-08-29 13:45 | disposition home or self-care (01) ==
PROVIDERS: Visit Provider Nurse Practitioner Family
DX: I48.0 Paroxysmal atrial fibrillation (principal); E87.6 Hypokalemia; I10 Essential (primary) hypertension; Z98.890 Other specified postprocedural states; Z09 Encounter for follow-up examination after completed treatment for conditions other than malignant neoplasm
CPT/HCPCS: 99214

== ENCOUNTER → 2023-08-29 13:04 | Outpatient (BNVA) | payer OTHER, SELFPAY | PROVIDERS: Visit Provider Nurse Practitioner Family ==

== ENCOUNTER 2023-09-04 10:18 | Outpatient (AMB) | payer OTHER, SELFPAY ==
--- NOTE | 2023-09-04 10:27 | HO.SPINEOV ---
Intake Intake Visit Reasons: 2nd post op Intake Note: Mrs. Drake is here today for her 2nd post-op visit. Clock Assembler Required: No Allergies acetaminophen [From Tylenol] Allergy (Verified 06/11/23 11:40) Swelling baclofen Allergy (Verified 06/11/23 11:55) Unknown Iodinated Contrast Media [IV Contrast Dye] Allergy (Verified 06/11/23 11:40) Rash lisinopril Allergy (Verified 06/11/23 11:54) Cough Assessment & Plan Assessment & Plan (1) S/P spinal surgery: Code(s): Z98.890 - Other specified postprocedural states Plan Procedure: L4-5 Laminotomy, Partial facetectomy Deborah comes in today for her 2nd postoperative visit. She reports that her pain and weakness in her bilateral lower legs has completely resolved. She is no pain in her low back. She states that she is able to complete all of her ADLs around her house, and most recently is very happy to report that she is been dancing with her the 1st time in many years. She had some questions regarding returning to normal activity today, and asked about being able to go swimming again as this is one of her previous activities that help to keep her active. Her incision site appears to be healed enough for this not to be an issue. No neurological deficits. Sensation grossly intact. Patient is able to ambulate well, rises from a seated position without difficulty. Incision site is completely closed and well approximated. There is no need for continued routine follow-up with Deborah. She was informed she may call the office if she ever needs to follow up or make a new appointment. Ashkan Rogers MD,PhD [facility] Coding Level of Care Code Global (20190) Diagnoses S/P spinal surgery Z98.890
== END 2023-09-04 11:11 | disposition home or self-care (01) ==
PROVIDERS: Visit Provider Physician Assistant
DX: Z98.890 Other specified postprocedural states (principal)
CPT/HCPCS: 99024

== ENCOUNTER → 2023-09-04 10:18 | Outpatient (BNVA) | payer OTHER, SELFPAY | PROVIDERS: Visit Provider Physician Assistant ==

== ENCOUNTER 2023-12-01 15:08 | Outpatient (AMB) | payer OTHER, SELFPAY ==
[2023-12-01 15:24] VITALS: BP 146/88; PULSE 96; BMI 41.6
--- NOTE | 2023-12-01 15:24 | MHC.OFFVIS ---
Intake Vital Signs 12/01/23 15:24 Height 5 ft 6 in Weight 257 lb 15.053 oz BMI 41.6 BP 146/88 H Pulse 96 Pulse Source Pulse Oximeter Intake Visit Reasons: 3 mos followup Epilepsy Physician Required: No Allergies acetaminophen [From Tylenol] Allergy (Verified 12/01/23 15:26) Swelling baclofen Allergy (Verified 12/01/23 15:26) Unknown Iodinated Contrast Media [IV Contrast Dye] Allergy (Verified 12/01/23 15:26) Rash lisinopril Allergy (Verified 12/01/23 15:26) Cough Medication List - Last Reconciled 12/01/23 by Bibiana Castro NP-C cholecalciferol (vitamin D3) (Vitamin D3) 25 mcg PO DAILY fluticasone propionate 110 mcg/actuation 1 inh inhalation BID ibuprofen 600 mg PO Q6H PRN losartan mg PO metoprolol succinate ER 25 mg PO BID 90 days potassium chloride ER (Klor-Con M) 30 mEq PO DAILY HPI 3 mos followup HPI Details Deborah is a 73-year-old female past medical history of hypertension, morbid obesity who was at [facility], 06/2023, undergoing spinal surgery when she developed new onset atrial fibrillation. She was treated for heart rate control and within 4 hours she converted to sinus rhythm. She was not started on anticoagulation due to isolated episode. She was hypokalemic and her potassium was repleted. She was monitored overnight without recurrence. She has not had known recurrent AFib since that time. Today she reports she has continues to have issues with chronic back pain and difficulty with ambulation. She has not had any known recurrent atrial fibrillation. She does not recall feeling any heart palpitations when she was in the hospital. No chest discomfort at rest or with activity. No shortness of breath, presyncope, syncope, falls. No PND, orthopnea or edema. She has been trying to increase her physical activity. [facility] Medical History Back pain Arthritis Seizures HTN (hypertension) Surgical History Hx of section Hx of foot surgery Hx of bilateral salpingo-oophorectomy Hx of total hysterectomy History of open reduction and internal fixation (ORIF) procedure Hx of tonsillectomy Hx of repair of rotator cuff Hx of total knee replacement Family History Mother Diabetes Social History Household Members: Spouse Housing: House Are you a primary palliative care nurse practitioner to a significant other at home: No Do you presently have visiting nurse or other home services: No Comment: counts correct Patient Tobacco Use Status: Never used Tobacco service: No Review of Systems Const Details: Ongoing back discomfort All systems reviewed & are unremarkable except as noted in HPI and below ENT Denies dizziness Card Denies chest pain, Denies chest pain at rest, Denies chest pain with activity, Denies rapid heart rate, Denies pedal edema, Denies edema, Denies leg edema, Denies lightheadedness, Denies palpitations, Denies dyspnea, Denies dyspnea on exertion and Denies orthopnea Resp Denies cough, Denies dyspnea and Denies dyspnea on exertion GI Denies hematochezia and Denies change in stool character Musc Reports abnormal gait, Reports limited range of motion, Denies muscle cramps, Reports muscle weakness, Denies numbness, Denies radiating pain into limb, Denies stiffness and Denies tingling Neuro Reports abnormal gait, Denies dizziness, Denies numbness and Denies tingling Endo Denies palpitations Physical Exam Vital Signs: Last Vital Signs Pulse 96 12/01/23 15:24 BMI result Body Mass Index 41.6 Const General: cooperative, healthy appearing and no acute distress Orientation/consciousness: patient oriented x3 Neck Neck: Yes normal visual inspection and Yes no JVD Resp Effort & Inspection: normal respiratory effort Auscultation: clear to auscultation bilaterally, no crackles, no rales, no rhonchi and no wheezes Cardio Jugular venous distension: no JVD Rate: regular rate Rhythm: regular rhythm Heart sounds: S1 normal heart sound present, S2 normal heart sound present, no murmurs and no rubs Neuro General: patient oriented x3 Extrem General: Yes normal to inspection, No no pedal edema and No calf tenderness Psych Appearance: grossly normal Mental Status: mental status grossly normal Speech and movement: Normal speech and movement present Assessment & Plan Assessment & Plan (1) Atrial fibrillation: Code(s): I48.91 - Unspecified atrial fibrillation Qualifiers: Atrial fibrillation type: paroxysmal Qualified Code(s): I48.0 - Paroxysmal atrial fibrillation Plan: Episode of atrial fibrillation lasting under 4 hours occurred on 07/10/23 post spinal surgery. She was treated for heart rate control using IV metoprolol. She was then started on metoprolol XL 25 mg b.i.d.. An echocardiogram showed EF 55-60%, no valve abnormalities, aorta not well visualized. She was not started on anticoagulation at that time. Chads Vasc score of 3 with age, hypertension and female. Her AFib currently known to be a post op episode without documented recurrence. She did have a Holter monitor done on 07/21/2023 for 9 days showing sinus rhythm with average heart rate 92, 16% of the time heart rate greater than 100, rare supraventricular ectopy, minimal burden, very rare ventricular ectopy, no AFib. Today she reports no feelings of heart palpitations or elevated heart rates. She continues on metoprolol XL 25 mg b.i.d.. Reviewed Diagnosis of atrial fibrillation with her. Stroke risk with AFib discussed. Informed her if she has any known recurrent AFib she will be starting on anticoagulation. Since it was an isolated episode she may not require long-term anticoagulation. Instructed to call us with any palpitations or elevated heart rates. EKG could then be performed. ED care if needed for symptoms. Will check Holter monitor prior to next visit. Cardiology follow-up in 6 months, sooner if needed (2) Hypokalemia: Code(s): E87.6 - Hypokalemia Plan: At time of atrial fibrillation labs had shown potassium 2.7. This may have contributed to her episode. She her potassium was repleted and recheck a potassium was 3.5. She tells me she had been on hydrochlorothiazide which was then stopped at her hospital discharge due to the it addition of metoprolol. Since that time she saw her PCP and the hydrochlorothiazide was restarted due to elevated blood pressure readings. She tells me she has white coat syndrome. Since then she has been changed over to losartan and continues on metoprolol. Blood pressure adequately controlled and being managed by her PCP. (3) HTN (hypertension): Code(s): I10 - Essential (primary) hypertension Plan: As above (4) S/P spinal surgery: Code(s): Z98.890 - Other specified postprocedural states Plan: As above. She is considering asking her other providers to start in physical therapy for her back. Plan Time spent on chart review, documentation, interview and assessment Orders: Orders ECG 3 day holter monitor 05/14/24 I48.91 - Unspecified atrial fibrillation Coding Level of Care Code Est Pt Level 4 (76062) Diagnoses Paroxysmal atrial fibrillation I48.0 Atrial fibrillation type: paroxysmal Hypokalemia E87.6 HTN (hypertension) I10 S/P spinal surgery Z98.890 Time Spent (min) 28
== END 2023-12-01 16:14 | disposition home or self-care (01) ==
PROVIDERS: Visit Provider Nurse Practitioner Family
DX: I48.0 Paroxysmal atrial fibrillation (principal); E87.6 Hypokalemia; I10 Essential (primary) hypertension; Z98.890 Other specified postprocedural states
CPT/HCPCS: 99214

== ENCOUNTER → 2023-12-01 15:08 | Outpatient (BNVA) | payer OTHER, SELFPAY | PROVIDERS: Visit Provider Nurse Practitioner Family ==

== ENCOUNTER 2024-04-09 14:24 | Outpatient (REF) | payer OTHER, SELFPAY | END 2024-04-09 14:25 | disposition home or self-care (01) | LOC: HO.HOSX 14:24 | PROVIDERS: Visit Provider Physician Assistant | DX: Z13.89 Encounter for screening for other disorder (principal) ==

== ENCOUNTER 2024-04-09 14:24 | Outpatient (AMB) | payer OTHER, SELFPAY ==
--- NOTE | 2024-04-09 14:43 | A.SPINEOV_ITS ---
Intake Visit Reasons: recurring pain after sx Intake Note: Ms. Miller is here today c/o pain after surgery Harpooner Required: No Allergies acetaminophen [From Tylenol] Allergy (Verified 04/09/24 15:22) Swelling baclofen Allergy (Verified 12/01/23 15:26) Unknown Iodinated Contrast Media [IV Contrast Dye] Allergy (Verified 04/09/24 15:22) Rash lisinopril Allergy (Verified 12/01/23 15:26) Cough Assessment & Plan Assessment & Plan (1) Spinal stenosis: Code(s): M48.00 - Spinal stenosis, site unspecified Category: Medical Plan Mrs Miller at an L4-5 decompression done last year in the setting of severe lumbar stenosis. She did well after the surgery in terms of the electrical sensations going down her legs but had a persistent back pain the never really went away after surgery. She did try some aqua therapy at 1 point in seemed to be more mobile. During the month of February, she started with some traditional physical therapy and they were doing massages on her low back and the intensity of the pain increased exponentially. It got to the point where she had to discontinue the therapy herself just because it was so painful. Now, she is having significant pain with standing and movement. Persistent sitting or even lying down in turning over in bed is very uncomfortable. She will take lwif-bhm-eucohle medications if needed. She does not have any of the radicular symptoms back down her legs. She is frustrated because she felt as though she was doing very well. On my exam she has a well-healed incision in her strength is normal. She had an MRI done at [facility] and this shows that she has excellent decompression of the L4-5 level, but there is some hyperintensity of the facet joints. She has a severely degenerative disc at L5- S1. According to the previous office notes, x-rays were done and this is demonstrated as a fused segment. I went back and looked at her original flexion-extension x-rays and there was a grade 1 spondylolisthesis. She still continues to have that on her current MRI. Preoperatively there was no instability with flexion or extension. I am going to repeat this as a precaution given the facet hyperintensity that we see on the imaging. It could be that she might be developing some instability. The other possibility is just that the therapy irritated her back with the massages and she just needs to give it some time to cool down. I will call her with the results of the x-rays and will review with Dr. Rogers to get his thoughts on the matter as well. Total amount of time spent in this visit was 20 minutes in discussion of symptoms, lumbar imaging results and subsequent plan of care Bhargav Rogers MD,PhD [facility] Orders: Orders XR lumbar spine 4V min Today M48.00 - Spinal stenosis, site unspecified Coding Level of Care Code Est Pt Level 3 (75269) Diagnoses Spinal stenosis M48.00
== END 2024-04-09 16:04 | disposition home or self-care (01) ==
PROVIDERS: Visit Provider Physician Assistant
DX: M48.00 Spinal stenosis, site unspecified (principal)
CPT/HCPCS: 99213

== ENCOUNTER 2024-05-06 08:22 | Outpatient (AMB) | payer OTHER, SELFPAY ==
--- NOTE | 2024-05-06 08:26 | A.OFFVIS_ITS ---
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: No Allergies acetaminophen [From Tylenol] Allergy (Verified 05/06/24 08:31) Swelling baclofen Allergy (Verified 05/06/24 08:31) Unknown Iodinated Contrast Media [IV Contrast Dye] Allergy (Verified 05/06/24 08:31) Rash lisinopril Allergy (Verified 05/06/24 08:31) Cough Medication List - Last Reconciled 05/06/24 by Bibiana Castro, ASSOCIATE SOFTWARE DEVELOPER-C cholecalciferol (vitamin D3) (Vitamin D3) 25 mcg PO DAILY fluticasone propionate 110 mcg/actuation 1 inh inhalation BID ibuprofen 600 mg PO Q6H PRN metoprolol succinate ER 25 mg PO BID 90 days potassium chloride ER (Klor-Con M) 30 mEq PO DAILY HPI HPI 6 m follow up: Details: Deborah is a 73-year-old female past medical history of hypertension, morbid obesity who was at [facility], 06/2023, undergoing spinal surgery when she developed new onset atrial fibrillation. She was treated for heart rate control and within 4 hours she converted to sinus rhythm. She was not st arted on anticoagulation due to isolated episode. She was hypokalemic and her potassium was repleted. She was monitored overnight without recurrence. She has not had known recurrent AFib since that time. A holter monitor was ordered prior to this visit, which she did not want to do. Today she reports that she has not had any known recurrent atrial fibrillation, no heart palpitations or elevated heart rates causing concern. She continues to have issues with chronic back pain and difficulty with ambulation. No chest discomfort at rest or with activity. No shortness of breath, presyncope, syncope, falls. No PND, orthopnea or edema. She has following with the [facility]. She reports compliance with her meds. [facility] Medical History Back pain Arthritis Seizures HTN (hypertension) Surgical History Hx of section Hx of foot surgery Hx of bilateral salpingo-oophorectomy Hx of total hysterectomy History of open reduction and internal fixation (ORIF) procedure Hx of tonsillectomy Hx of repair of rotator cuff Hx of total knee replacement Family History Mother Diabetes Social History Household Members: Spouse Housing: House Are you a primary early breastfeeding care specialist to a significant other at home: No Do you presently have visiting nurse or other home services: No Comment: counts correct Patient Tobacco Use Status: Never used Tobacco service: No Review of Systems Const All systems reviewed & are unremarkable except as noted in HPI and below ENT Denies dizziness Card Denies chest pain, Denies chest pain at rest, Denies chest pain with activity, Denies rapid heart rate, Denies pedal edema, Denies edema, Denies leg edema, Denies lightheadedness, Denies palpitations, Denies dyspnea, Denies dyspnea on exertion and Denies orthopnea Resp Denies cough, Denies dyspnea and Denies dyspnea on exertion GI Denies hematochezia and Denies change in stool character Musc Details: chronic back pain Reports abnormal gait, Reports limited range of motion, Denies muscle cramps, Denies muscle weakness, Denies numbness, Denies radiating pain into limb, Denies stiffness and Denies tingling Neuro Reports abnormal gait, Denies dizziness, Denies numbness and Denies tingling Endo Denies palpitations Physical Exam Vital Signs: BMI result Body Mass Index 39.6 Const Other: slow ambulation General: cooperative, healthy appearing and no acute distress Orientation/consciousness: patient oriented x3 Neck Neck: Yes normal visual inspection and Yes no JVD Resp Effort & Inspection: normal respiratory effort Auscultation: clear to auscultation bilaterally, no crackles, no rales, no rhonchi and no wheezes Cardio Jugular venous distension: no JVD Rate: regular rate Rhythm: regular rhythm Heart sounds: S1 normal heart sound present, S2 normal heart sound present, no murmurs and no rubs Neuro General: patient oriented x3 Extrem General: Yes normal to inspection, No no pedal edema and No calf tenderness Psych Appearance: grossly normal Mental Status: mental status grossly normal Speech and movement: Normal speech and movement present Assessment & Plan Assessment & Plan (1) Atrial fibrillation: Code(s): I48.91 - Unspecified atrial fibrillation Category: Medical Qualifiers: Atrial fibrillation type: paroxysmal Qualified Code(s): I48.0 - Paroxysmal atrial fibrillation Plan: Episode of atrial fibrillation lasting under 4 hours occurred on 07/10/23 post spinal surgery. She was treated for heart rate control using IV metoprolol. She was then started on metoprolol XL 25 mg b.i.d.. An echocardiogram showed EF 55-60%, no valve abnormalities, aorta not well visualized. She was not started on anticoagulation at that time since it was an isolated episode. Chads Vasc score of 3 with age, hypertension and female. Her AFib currently known to be a post op episode without documented recurrence. She did have a Holter monitor done on 07/21/2023 for 9 days showing sinus rhythm with average heart rate 92, 16% of the time heart rate greater than 100, rare supraventricular ectopy, minimal burden, very rare ventricular ectopy, no AFib. Holter monitor was ordered prior to this visit which she did not want to complete. She tells me that she has no heart disease in her family or personal history and that she believes her heart is fine. Today she reports no feelings of heart palpitations or elevated heart rates. She continues on metoprolol XL 25 mg b.i.d. Again reviewed diagnosis of atrial fibrillation with her and the stroke risk that AFib carries. 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 She has no personal concerns about recurrent atrial fibrillation. Her pulse is very regular on exam today, clinically she is in sinus rhythm. Informed her that if she has any known recurrent AFib she will be starting on anticoagulation. Instructed to notify this office for any concerning heart palpitations or elevated rates. Signs and symptoms of stroke discussed. Emergency care if needed for symptoms. She tells me her daughter is a nurse and she is available if she has any concerns. Will change her metoprolol to once daily dosing. Cardiology follow-up in 1 year, sooner if needed (2) Hypokalemia: Code(s): E87.6 - Hypokalemia Category: Medical Plan: At time of atrial fibrillation labs had shown potassium 2.7. This may have contributed to her episode. She her potassium was repleted and recheck a potassium was 3.5. She tells me she had been on hydrochlorothiazide which was then stopped at her hospital discharge due to the it addition of metoprolol. Since that time she saw her PCP and the hydrochlorothiazide was restarted due to elevated blood pressure readings. She tells me she has white coat syndrome. Since then she has been changed over to losartan and continues on metoprolol. Blood pressure is mildly elevated which she relates to the pain and being in the office. Her labs and hypertension are managed by her PCP. (3) HTN (hypertension): Code(s): I10 - Essential (primary) hypertension Category: Medical Plan: As above (4) S/P spinal surgery: Code(s): Z98.890 - Other specified postprocedural states Category: Surgical Plan: As above. Still having chronic back pain which limits her physical activity. Following with the [facility]. Plan Time spent on chart review, documentation, interview and assessment Medications: New metoprolol succinate ER Take 1 tablet daily 50 mg PO DAILY 90 tabs 3RF Discontinued metoprolol succinate ER Discontinued Reason: Doctor's Order 25 mg PO BID 90 days 180 tabs 3RF Coding Level of Care Code Est Pt Level 4 (41502) Diagnoses Paroxysmal atrial fibrillation I48.0 Atrial fibrillation type: paroxysmal Hypokalemia E87.6 HTN (hypertension) I10 S/P spinal surgery Z98.890 Time Spent (min) 28
[2024-05-06 08:27] VITALS: BP 152/90; PULSE 92; BMI 39.6
== END 2024-05-06 09:09 | disposition home or self-care (01) ==
PROVIDERS: Visit Provider Nurse Practitioner Family
DX: I48.0 Paroxysmal atrial fibrillation (principal); E87.6 Hypokalemia; I10 Essential (primary) hypertension; Z98.890 Other specified postprocedural states
CPT/HCPCS: 99214

== ENCOUNTER → 2024-05-06 08:22 | Outpatient (BNVA) | payer OTHER, SELFPAY | PROVIDERS: Visit Provider Nurse Practitioner Family ==